=== PATIENT | male | born 1955 | race Caucasian/White ===

== ENCOUNTER 2016-07-15 11:41 | Emergency (ER) | payer MEDICARE, OTHER ==
[~2016-07-15] VITALS: Ht 170.2 cm; Wt 128.0 kg
[~2016-07-15 11:41] MED LIST: ASPI-664 PO; ATOR40TA68 PO; CLON0.2T5 PO; FURO-109 PO; INSU500I SQ; LANT3I SC; METO-448 PO; OMEG1CAP2 PO; OMEP40CA6 PO; VALS80TA2 PO
[2016-07-15 11:54] VITALS: Ht 170.2 cm; Wt 128.0 kg
== END 2016-07-15 12:31 | disposition left against medical advice (07) ==
LOC: E/R 11:41
DX: Z53.21 Procedure and treatment not carried out due to patient leaving prior to being seen by health care provider (principal)

== ENCOUNTER → 2016-10-19 | Outpatient (CLI) | payer MEDICARE, OTHER ==
--- NOTE | 2016-10-19 14:06 | RADRPT ---
PROCEDURE: XR Chest. CLINICAL INDICATION: Shortness of breath. TECHNIQUE: Two views. Frontal and lateral. COMPARISON: 12/29/2015. FINDINGS: The lungs are clear. The heart is mildly enlarged. There is no pleural effusion. There is no pneumothorax. IMPRESSION: 1. Mild cardiomegaly. 2. Otherwise normal chest x-ray. RPTAT: QQ .Kyler Tomlinson MD, MD Date Time Electronically viewed and signed by .Kyler Tomlinson MD, MD on 10/19/2016 14:06 .R/
== END | disposition home or self-care (01) ==
LOC: RAD 13:05
PROVIDERS: ATTEND General Practice
DX: R06.00 Dyspnea, unspecified (principal)
CPT/HCPCS: 71020

== ENCOUNTER 2016-11-07 10:36 | Inpatient (IN) | payer MEDICARE, OTHER ==
[~2016-11-07] VITALS: Ht 170.2 cm; Wt 166.7 kg
--- NOTE | 2016-11-07 12:03 | ERA ---
ER Documentation Chief Complaint Date/Time DATE: 11/07/16 TIME: 12:03 Chief Complaint SOB HPI The patient is a 61-year-old male, presenting to the ER because of shortness of breath for the last several week, worse today. He had similar symptoms previously, complains of dizziness and intermittent cough for the last 2 days. He denies fever, chills, syncope, near syncope, neck pain, chest pain, palpitation, diaphoresis, abdominal pain, vomiting, dysuria, diarrhea. He does not smoke nor drink Past medical history: Hypertension, obesity, osteoarthritis, diabetes mellitus, dyslipidemia, diabetic neuropathy Past surgical history: Right forefoot amputation ROS All systems reviewed and are negative except as per history of present illness. Medications Home Meds Active Scripts Metoprolol Tartrate* (Lopressor*) 25 Mg Tab, 50 MG PO BID for 1 Day, TAB Prov:ALEXX CHRISTINE MD 12/13/15 Valsartan* (Diovan*) 80 Mg Tablet, 80 MG PO DAILY for 1 Day, TAB Prov:ALEXX CHRISTINE MD 12/13/15 Reported Medications Hydrocodone/Acetaminophen ([place] 10-325 Tablet) 1 Each Tablet, 1 TAB PO q6h Y for PAIN LEVEL 6-10, TAB 11/07/16 Potassium Chloride* (K-Dur*) 10 Meq Tab.prt.sr, 10 MEQ PO DAILY, TAB 11/07/16 Insulin Regular, Human (Humulin R U-500 Kwikpen) 500 Unit/1 Ml Insuln.pen, 12 UNIT SQ AC BREAKFAST 12/29/15 Omeprazole* (Omeprazole*) 40 Mg Capsule.dr, 40 MG PO DAILY, #30 CAP 12/11/15 Clonidine Hcl* (Clonidine Hcl*) 0.2 Mg Tablet, 0.2 MG PO QID Y for ANXIETY, TAB 12/11/15 Atorvastatin* (Atorvastatin*) 40 Mg Tablet, 40 MG PO QHS, #30 TAB 12/11/15 [place]-3 Acid Ethyl Esters (Lovaza) 1 Gm Capsule, 4 GM PO DAILY, CAP 12/11/15 Insulin Glargine* (Lantus*) 100 Unit/Ml Soln, 62 UNIT SC HS, EA 03/19/15 Furosemide* (Lasix*) 40 Mg Tablet, 40 MG PO DAILY, TAB 03/19/15 Aspirin* (Aspirin* (EC)) 81 Mg Tablet.dr, 81 MG PO daily 08/06/12 Allergies Allergies: Coded Allergies: Penicillins (Verified Allergy, Unknown, RASH, RAPID HEART RATE, 11/07/16) PMhx/Soc History of Surgery: Yes (right TMA) Anesthesia Reaction: No Hx Neurological Disorder: No Hx Respiratory Disorders: No Hx Cardiac Disorders: Yes (HTN) Hx Miscellaneous Medical Probl: No (DM, elevated Cholesterol.) Hx Alcohol Use: No Hx Substance Use: No Hx Tobacco Use: No Physical Exam Vitals Vital Signs Date Time Temp Pulse Resp B/P Pulse Ox O2 Delivery O2 Flow Rate FiO2 11/07/16 18:50 98.0 74 16 179/87 98 Room Air 11/07/16 17:00 98.0 73 16 182/95 98 Room Air 11/07/16 15:00 98.1 69 16 187/94 97 Room Air 11/07/16 13:00 67 18 180/95 96 Room Air 11/07/16 12:15 97.9 72 18 171/81 97 Room Air 11/07/16 10:46 98.1 70 22 192/93 97 Physical Exam Const: No acute distress. Head: Atraumatic. Eyes: Normal Conjunctiva. ENT: Normal External Ears, Nose and Mouth. Neck: Full range of motion. No meningismus. Resp: Bibasilar crackle Cardio: Regular rate and rhythm. Abd: Soft, non distended, normal bowel sounds, non tender. Skin: No petechiae or rashes. Back: No midline or flank tenderness. Ext: Chronic erythema of lower extremity with mild bilateral calf tenderness, no open lesion Neur: Awake and alert. No focal deficit Psych: Normal Mood and Affect. Result Diagram: 11/07/16 1215 11/07/16 1215 Results 24 hrs Laboratory Tests Test 11/07/16 12:07 11/07/16 12:11 11/07/16 12:15 Blood Gas Specimen Source Blood arterial Arterial Blood Date Drawn 11/07/2016 12:30:46 PM Arterial Blood pH (Temp corrected) 7.438 Arterial Blood pCO2 (Temp correct) 37.0mmhg Arterial Blood pO2 (Temp corrected) 78.2mmHG Arterial Blood HCO3 24.5mmol/L Arterial Blood Base Excess 0.6mmol/L Arterial Blood Oxygen Saturation 95.9mmHG Nate Test ACCEPTAB Arterial Blood Gas Puncture Site Left Radial Arterial Blood Carboxyhemoglobin 0.1% Arterial Blood Methemoglobin 0.2% Blood Gas A-a O2 Differential 27.2mmHg Oxyhemoglobin Percent 95.6% Total Hemoglobin 13.8g/dl Blood Gas Temperature 37.0C Blood Gas Modality ROOM AIR FiO2 21.0% Blood Gas Notified Whom Jerod Blood Gas Notified Time 11/07/2016 12:38:42 PM Bedside Glucose 156mg/dL White Blood Count 6.610^3/ul Red Blood Count 4.4410^6/ul Hemoglobin 12.6g/dl Hematocrit 39.3% Mean Corpuscular Volume 88.5fl Mean Corpuscular Hemoglobin 28.4pg Mean Corpuscular Hemoglobin Concent 32.1g/dl Red Cell Distribution Width 13.6% Platelet Count 12346^3/UL Mean Platelet Volume 10.0fl Neutrophils % 58.1% Lymphocytes % 28.5% Monocytes % 8.7% Eosinophils % 3.8% Basophils % 0.6% Nucleated Red Blood Cells % 0.0/100WBC Neutrophils # 3.810^3/ul Lymphocytes # 1.910^3/ul Monocytes # 0.610^3/ul Eosinophils # 0.310^3/ul Basophils # 0.010^3/ul Nucleated Red Blood Cells # 0.010^3/ul Prothrombin Time 12.3Sec Prothrombin Time Ratio 1.0 INR International Normalized Ratio 0.91 Activated Partial Thromboplast Time 25.2Sec D-Dimer 840.98ng/ml D-Dimer Comment Sodium Level 140mmol/L Potassium Level 4.2mmol/L Chloride Level 103mmol/L Carbon Dioxide Level 26mmol/L Anion Gap 15 Blood Urea Nitrogen 21mg/dl Creatinine 1.74mg/dl Glucose Level 168mg/dl Calcium Level 8.9mg/dl Total Bilirubin 1.5mg/dl Direct Bilirubin 0.00mg/dl Indirect Bilirubin 1.5mg/dl Aspartate Amino Transf (AST/SGOT) 32IU/L Alanine Aminotransferase (ALT/SGPT) 39IU/L Alkaline Phosphatase 153IU/L Troponin I 0.019ng/ml B-Type Natriuretic Peptide 868PG/ML Total Protein 6.8g/dl Albumin 3.4g/dl Globulin 3.40g/dl Albumin/Globulin Ratio 1.00 Current Medications Medications (Trade) Dose Ordered Sig/Aicha Route PRN Reason Start Time Stop Time Status Last Admin Dose Admin Acetaminophen/ Hydrocodone Bitart ([place] (10/325)) 1 tab ONCE ONCE PO 11/07/16 13:30 11/07/16 13:31 DC 11/07/16 13:18 Furosemide (Lasix) 40 mg ONCE ONCE IV 11/07/16 15:00 11/07/16 15:01 DC 11/07/16 15:07 IV Flush (NS 3 ml) 3 ml PER PROTOCOL IV 11/07/16 17:30 Ondansetron HCl (Zofran Inj) 4 mg Q6H PRN IV NAUSEA AND/OR VOMITING 11/07/16 17:30 Acetaminophen (Tylenol Tab) 650 mg Q6H PRN PO PAIN LEVEL 1-3 OR FEVER 11/07/16 17:30 Acetaminophen/ Hydrocodone Bitart ([place] (5/325)) 1 tab Q6H PRN PO MODERATE PAIN LEVEL 4-6 11/07/16 17:30 Morphine Sulfate (morphine) 2 mg Q4H PRN IV SEVERE PAIN LEVEL 7-10 11/07/16 17:30 Docusate Sodium (Colace) 100 mg Q12H PRN PO CONSTIPATION 11/07/16 17:30 Zolpidem Tartrate (Ambien) 5 mg QHS PRN PO SLEEP 11/07/16 17:30 Miscellaneous Information (* Miscellaneous Pharmacy Order) Discontinue current oral sulfonylur... ONCE ONCE XX 11/07/16 17:30 11/07/16 17:30 DC Diagnostic Test (Pha) (Accu-Chek) 1 ea 02 XX 11/08/16 02:00 Miscellaneous Information (* Miscellaneous Pharmacy Order) HYPOGLYCEMIA PROTOCOL w... ONCE ONCE XX 11/07/16 17:30 11/07/16 17:30 DC Insulin Aspart (Novolog Insulin Pen) NOVOLOG *MILD* ALGORITHM WITH MEALS BEDTIME SC 11/07/16 18:00 Miscellaneous Information (* Miscellaneous Pharmacy Order) Discontinue all previ... ONCE ONCE XX 11/07/16 17:30 11/07/16 17:30 DC Heparin Sodium (Porcine) (Heparin (5000 Units/0.5 ml)) 5,000 unit BID SC 11/07/16 21:00 Aspirin (Halfprin) 81 mg DAILY PO 11/08/16 09:00 Atorvastatin Calcium (Lipitor) 40 mg QHS PO 11/07/16 21:00 Clonidine (Catapres) 0.2 mg QID PRN PO ANXIETY 11/07/16 17:30 UNV Insulin Glargine (Lantus) 62 unit HS SC 11/07/16 21:00 Metoprolol Tartrate (Lopressor) 50 mg BID PO 11/07/16 21:00 Potassium Chloride (Klor-Con 10) 10 meq DAILY PO 11/08/16 09:00 Valsartan (Diovan) 80 mg DAILY PO 11/08/16 09:00 Insulin Aspart (Novolog Insulin Pen) 12 unit AC BREAKFAST SC 11/08/16 07:00 Fish Oil (Fish Oil) 4,000 mg DAILY PO 11/08/16 09:00 Pantoprazole (Protonix Tab) 40 mg DAILY@06 PO 11/08/16 06:00 Furosemide (Lasix) 40 mg BID DIURETICS IV 11/07/16 18:00 11/07/16 18:49 Miscellaneous Information 1 ea NOTE XX 11/07/16 17:30 Glucose (Glutose) 15 gm Q15M PRN PO DECREASED GLUCOSE 11/07/16 17:30 Glucose (Glutose) 22.5 gm Q15M PRN PO DECREASED GLUCOSE 11/07/16 17:30 Dextrose (D50w Syringe) 25 ml Q15M PRN IV DECREASED GLUCOSE 11/07/16 17:30 Dextrose (D50w Syringe) 50 ml Q15M PRN IV DECREASED GLUCOSE 11/07/16 17:30 Glucagon (Glucagen) 1 mg Q15M PRN IM DECREASED GLUCOSE 11/07/16 17:30 Glucose (Glutose) 15 gm Q15M PRN BUCCAL DECREASED GLUCOSE 11/07/16 17:30 Procedures/[place] [id number] Radiology Main Line: [phone] DIAGNOSTIC IMAGING REPORT Patient: MARIANO JAVIER : 1955 Age: 61 Sex: M MR #: [id number] DOS: 11/07/16 1207 Ordering MD: JANIYA JONES MD Location: E/R Room/Bed: PROCEDURE: US bilateral lower extremity veins. CLINICAL INDICATION: Bilateral leg pain and swelling. Shortness of breath. TECHNIQUE: Multiple longitudinal and transverse images of the bilateral lower extremity veins were obtained with velazquez scale and color Doppler imaging. The common femoral vein, femoral vein, and popliteal vein were evaluated. 2D grayscale measurements with compression sonography, color Doppler, and pulsed Doppler with augmentation. COMPARISON: No prior studies are available for comparison. FINDINGS: The bilateral common femoral, femoral and popliteal veins are normally compressible throughout. Color flow demonstrates normal filling of the vessels. Normal waveforms are visualized and there is normal response to augmentation. IMPRESSION: 1. No evidence of deep vein thrombosis involving either lower extremity. RPTAT: QQ .Kyler Tomlinson MD, MD Date Time Electronically viewed and signed by .Kyler Tomlinson MD, MD on 11/07/2016 13:26 .R/ CC: JANIYA JONES MD EKG: Read by emergency physician Rate/Rhythm: Accelerated junctional rhythm 72 beats/min QRS, ST, T-waves: No ST elevation, no T inversion, LAD, inferior and anterior Q waves Impression: Abnormal EKG [place] [id number] Radiology Main Line: [phone] DIAGNOSTIC IMAGING REPORT Patient: MARIANO JAVIER : 1955 Age: 61 Sex: M MR #: [id number] DOS: 11/07/16 1207 Ordering MD: AJNIYA JONES MD Location: E/R Room/Bed: PROCEDURE: XR Chest. CLINICAL INDICATION: shortness of breath TECHNIQUE: Single portable view of the chest was obtained COMPARISON: 10/19/2016 FINDINGS: There is mild cardiomegaly. There is mild pulmonary vascular congestion. There is no pleural effusion. There is no pneumothorax. The bones and soft tissues are unremarkable. RPTAT: AA IMPRESSION: Mild cardiomegaly with mild pulmonary vascular congestion. .Alex Pena MD, MD Date Time Electronically viewed and signed by .Alex Pena MD, MD on 11/07/2016 14: 22 .S/ CC: JANIYA JONES MD VQ scan is pending to rule out pulmonary embolism MEDICAL MAKING DECISION: The patient is a 71-year-old male, presenting with acute CHF, possibly chronic kidney disease. He was treated with [place] 10 mg p.o. for pain, Lasix 40 mg IV for acute CHF with good response The differential diagnoses considered include but are not limited to asthma, COPD, pneumonia, pulmonary embolus, pleural effusion, congestive heart failure. Departure Diagnosis: Primary Impression: CHF (congestive heart failure) Additional Impressions: Chronic kidney disease Anemia Abnormal LFTs Condition: Stable Comments I discussed the person with his physician Dr.Michel Mehta, who recommended me to admit the patient to the hospital I discussed the findings with the patient. I discussed the patient with the on- call hospitalist Dr. Siegel at 3:20 PM who was made aware of the lab, the treatment, the patient condition. The patient is admitted to JANIYA Goodwin MD Nov 07, 2016 12:03
[2016-11-07 12:33] LABS: BASOPHILS % 0.6 % (0.0-2.0); EOSINOPHILS # 0.3 10^3/ul (0.0-0.5); EOSINOPHILS % 3.8 % (0.0-7.0); HEMATOCRIT 39.3 % (42.0-52.0); HEMOGLOBIN 12.6 g/dl (14.0-18.0); LYMPHOCYTES # 1.9 10^3/ul (0.8-2.9); LYMPHOCYTES % 28.5 % (15.0-51.0); MEAN CORPUSCULAR HEMOGLOBIN 28.4 pg (29.0-33.0); MEAN CORPUSCULAR HGB CONC 32.1 g/dl (32.0-37.0); MEAN CORPUSCULAR VOLUME 88.5 fl (82.0-101.0); MONOCYTE # 0.6 10^3/ul (0.3-0.9); MONOCYTES % 8.7 % (0.0-11.0); NEUTROPHIL # 3.8 10^3/ul (1.6-7.5); NEUTROPHILS % 58.1 % (39.0-77.0); PLATELET COUNT 233 10^3/UL (140-415); RED BLOOD COUNT 4.44 10^6/ul (4.70-6.10); RED CELL DISTRIBUTION WIDTH 13.6 % (11.5-14.5); WHITE BLOOD COUNT 6.6 10^3/ul (4.8-10.8)
[2016-11-07 12:38] LABS: AADO2 Arterial 27.2 mmHg (7.0-24.0); Allen Test ACCEPTAB; Arterial Base Excess 0.6 mmol/L (-3.0-3); Arterial COHb 0.1 % (0.0-3.0); Arterial Fraction of Oxyhgb 95.6 % (93.0-99.0); Arterial HCO3 24.5 mmol/L (22.0-26.0); Arterial MetHb 0.2 % (0.0-1.5); Arterial Total Hemglobin 13.8 g/dl (12.0-18.0); MODE ROOM AIR
[2016-11-07 12:53] LABS: INR 0.91; PROTIME 12.3 Sec (12.2-14.2)
[2016-11-07 12:54] LABS: PARTIAL THROMBOPLASTIN TIME 25.2 Sec (25.0-35.0)
[2016-11-07 12:56] LABS: D-DIMER 840.98 ng/ml (<460)
[2016-11-07 13:08] LABS: ALBUMIN 3.4 g/dl (3.3-4.9); BILIRUBIN,INDIRECT 1.5 mg/dl (0-1.1); BILIRUBIN,TOTAL 1.5 mg/dl (0.2-1.3); CALCIUM 8.9 mg/dl (8.4-10.2); CREATININE 1.74 mg/dl (0.61-1.24); POTASSIUM 4.2 mmol/L (3.5-5.1); TOTAL PROTEIN 6.8 g/dl (6.1-8.1)
[2016-11-07 13:19] LABS: TROPONIN-I 0.019 ng/ml (0.00-0.12)
--- NOTE | 2016-11-07 13:26 | RADRPT ---
PROCEDURE: US bilateral lower extremity veins. CLINICAL INDICATION: Bilateral leg pain and swelling. Shortness of breath. TECHNIQUE: Multiple longitudinal and transverse images of the bilateral lower extremity veins were obtained with velazquez scale and color Doppler imaging. The common femoral vein, femoral vein, and popl iteal vein were evaluated. 2D grayscale measurements with compression sonography, color Doppler, and pulsed Doppler with augmentation. COMPARISON: No prior studies are available for comparison. FINDINGS: The bilateral common femoral, femoral and popliteal veins are normally compressible throughout. Col or flow demonstrates normal filling of the vessels. Normal waveforms are visualized and there is no rmal response to augmentation. IMPRESSION: 1. No evidence of deep vein thrombosis involving either lower extremity. RPTAT: QQ .Kyler Tomlinson MD, MD Date Time Electronically viewed and signed by .Kyler Tomlinson MD, on 11/07/2016 13:26 .R/
[2016-11-07] MEDS ORDERED: HYDROCODONE/APAP (10/325) TAB PO ONE (13:30)
--- NOTE | 2016-11-07 14:22 | RADRPT ---
PROCEDURE: XR Chest. CLINICAL INDICATION: shortness of breath TECHNIQUE: Single portable view of the chest was obtained COMPARISON: 10/19/2016 FINDINGS: There is mild cardiomegaly. There is mild pulmonary vascular congestion. There is no pleural effusion. There is no pneumothorax. The bones and soft tissues are unremarkable. RPTAT: AA IMPRESSION: Mild cardiomegaly with mild pulmonary vascular congestion. .Alex Pena MD, MD Date Time Electronically viewed and signed by .Alex Pena MD, on 11/07/2016 14:22 .S/
[2016-11-07] MEDS ORDERED: HYDR-902 PO (14:23)
[2016-11-07] MEDS ORDERED: POTA10TA37 PO (14:23)
[2016-11-07] MEDS ORDERED: FUROSEMIDE 40 MG INJ IV ONE (15:00)
--- NOTE | 2016-11-07 17:02 | HP ---
Date/Time of Note Date/Time of Note DATE: 11/07/16 TIME: 16:56 Assessment/Plan VTE Prophylaxis VTE Prophylaxis Intervention: LMWH Assessment/Plan Chief Complaint/Hosp Course 1. Acute respiratory distress secondary to pulmonary edema Lasix IV, 2D echo 2. Diabetes Continue home regimen, sliding scale 3. Hypertension Resume home medications 4. Dyslipidemia Resume 5. Morbid obesity Lifestyle changes to be advised Prophylaxis: Lovenox Problems: HPI/ROS Admit Date/Time Admit Date/Time November 07, 2016 Hx of Present Illness Patient is a 61-year-old male with a history of morbid obesity, diabetes, hypertension, dyslipidemia, right foot ulceration status post TMA. Patient presents with shortness of breath and lower extremity pain the past several days. In the ED chest x-ray showed mild pulmonary vascular congestion, patient has no other complaints at this time. Of note patient is following up with [facility] for his podiatric issues. ROS Constitutional: improved, no complaints Eyes: no complaints ENT: no complaints Respiratory: shortness of breath Cardiovascular: no complaints Gastrointestinal: no complaints Genitourinary: no complaints Musculoskeletal: other (Pain in the legs) Skin: no complaints Endocrine: no complaints Lymphatic: no complaints Psychological: nl mood/affect, no complaints Immunologic: no complaints PMH/Family/Social Past Medical History As per HPI Family History Significant Family History: diabetes, hypertension Social History Alcohol Use: none Smoking Status: Former smoker Drug Use: none Exam/Review of Systems Vital Signs Vitals Vital Signs Date Time Temp Pulse Resp B/P Pulse Ox O2 Delivery O2 Flow Rate FiO2 11/07/16 13:00 67 18 180/95 96 Room Air 11/07/16 12:15 97.9 Exam Constitutional: alert, oriented Head: normocephalic Respiratory: clear to auscultation Cardiovascular: regular rate and rhythm Gastrointestinal: soft, No distended Musculoskeletal: No nl extremities to inspection Labs Result Diagram: 11/07/16 1215 11/07/16 1215 ROGELIO AVILES Nov 07, 2016 17:01
[2016-11-07] MEDS ORDERED: GLUCAGON 1 MG INJ IM PRN (17:30)
[2016-11-07] MEDS ORDERED: DOCUSATE SODIUM 100 MG CAP PO PRN (17:30)
[2016-11-07] MEDS ORDERED: GLUCOSE GEL 15 GRAM TUBE PO PRN ×2 (17:30)
[2016-11-07] MEDS ORDERED: ACETAMINOPHEN 325 MG TAB PO PRN (17:30)
[2016-11-07] MEDS ORDERED: DEXTROSE 50% 50 ML SYRINGE IV PRN ×2 (17:30)
[2016-11-07] MEDS ORDERED: morphine 2 MG INJ IV PRN (17:30)
[2016-11-07] MEDS ORDERED: GLUCOSE GEL 15 GRAM TUBE BUCCAL PRN (17:30)
[2016-11-07] MEDS ORDERED: ZOLPIDEM 5 MG TAB PO PRN (17:30)
[2016-11-07] MEDS ORDERED: NACL 0.9% 3 ML SYG IV SCH (17:30)
[2016-11-07] MEDS ORDERED: ONDANSETRON 4 MG INJ IV PRN (17:30)
[2016-11-07] MEDS: INSULIN ASPART [NOVOLOG] 3 ML PEN SC SCH ×2 (18:00→20:42)
[2016-11-07] MEDS: FUROSEMIDE 40 MG INJ IV SCH (18:49)
[2016-11-07 18:50] VITALS: TEMP 98
[2016-11-07 19:32] VITALS: PULSE 75
[2016-11-07 20:00] VITALS: Ht 170.2 cm; Wt 166.7 kg
[2016-11-07 20:03] VITALS: PULSE 70
[2016-11-07 20:08] VITALS: BP 193/89; RESP 20
[2016-11-07] MEDS: METOPROLOL 50 MG TAB PO SCH (20:20)
[2016-11-07] MEDS: HEPARIN 5,000 UNIT/0.5 ML VIAL SC SCH (20:28)
[2016-11-07] MEDS: morphine 4 MG/ML VIAL IV PRN (20:38)
[2016-11-07] MEDS ORDERED: INSULIN GLARGINE [LANtus] 3 ML PEN SC SCH (21:00)
[2016-11-07] MEDS ORDERED: ATORVASTATIN 40 MG TAB PO SCH (21:00)
[2016-11-07 22:30] VITALS: BP 160/75; PULSE 72; RESP 20
[2016-11-07] MEDS: hydrALAzine 20 MG INJ IV PRN (23:12)
[2016-11-07] MEDS: HYDROCODONE/APAP (5/325) TAB PO PRN (23:12)
[2016-11-08] VITALS (12 sets, daily range): BP systolic 132–183; BP diastolic 67–80; PULSE 69–72; RESP 20
[2016-11-08] MEDS ORDERED: ACCU-CHEK XX SCH (02:00)
[2016-11-08] MEDS ORDERED: PANTOPRAZOLE (EC) 40 MG TAB PO SCH (06:00)
[2016-11-08] MEDS: HYDROCODONE/APAP (5/325) TAB PO PRN ×2 (06:47→13:37)
[2016-11-08] MEDS: FUROSEMIDE 40 MG INJ IV SCH ×2 (06:48→18:10)
[2016-11-08 06:55] LABS: BASOPHILS % 0.5 % (0.0-2.0); EOSINOPHILS # 0.3 10^3/ul (0.0-0.5); EOSINOPHILS % 4.1 % (0.0-7.0); HEMATOCRIT 40.4 % (42.0-52.0); HEMOGLOBIN 12.8 g/dl (14.0-18.0); LYMPHOCYTES # 2.7 10^3/ul (0.8-2.9); LYMPHOCYTES % 34.6 % (15.0-51.0); MEAN CORPUSCULAR HEMOGLOBIN 28.6 pg (29.0-33.0); MEAN CORPUSCULAR HGB CONC 31.7 g/dl (32.0-37.0); MEAN CORPUSCULAR VOLUME 90.4 fl (82.0-101.0); MEAN PLATELET VOLUME 10.4 fl (7.4-10.4); MONOCYTE # 0.8 10^3/ul (0.3-0.9); MONOCYTES % 10.3 % (0.0-11.0); NEUTROPHIL # 3.9 10^3/ul (1.6-7.5); NEUTROPHILS % 50.2 % (39.0-77.0); PLATELET COUNT 254 10^3/UL (140-415); RED BLOOD COUNT 4.47 10^6/ul (4.70-6.10); RED CELL DISTRIBUTION WIDTH 13.8 % (11.5-14.5); WHITE BLOOD COUNT 7.8 10^3/ul (4.8-10.8)
[2016-11-08] MEDS ORDERED: INSULIN ASPART [NOVOLOG] 3 ML PEN SC SCH (07:00)
[2016-11-08 07:35] LABS: CALCIUM 9.2 mg/dl (8.4-10.2); CHOL/HDL RATIO 3.8 RATIO; CREATININE 1.93 mg/dl (0.61-1.24); MAGNESIUM 1.8 mg/dl (1.7-2.5); PHOSPHORUS 4.2 mg/dl (2.5-4.9); POTASSIUM 4.8 mmol/L (3.5-5.1)
[2016-11-08] MEDS: METOPROLOL 50 MG TAB PO SCH (08:14)
[2016-11-08] MEDS: HEPARIN 5,000 UNIT/0.5 ML VIAL SC SCH (08:16)
[2016-11-08] MEDS: INSULIN ASPART [NOVOLOG] 3 ML PEN SC SCH ×3 (08:26→17:20)
[2016-11-08] MEDS ORDERED: VALSARTAN 80 MG TAB PO SCH (09:00)
[2016-11-08] MEDS ORDERED: ASPIRIN (EC) 81 MG TAB PO SCH (09:00)
[2016-11-08] MEDS ORDERED: POTASSIUM CHLORIDE (SR) 10 MEQ TAB PO SCH (09:00)
[2016-11-08] MEDS ORDERED: AMLODIPINE 10 MG TAB PO SCH (09:00)
[2016-11-08] MEDS ORDERED: FISH OIL 1,000 MG CAP PO SCH (09:00)
[2016-11-08] MEDS ORDERED: PREG50CA PO (09:46)
[2016-11-08] MEDS ORDERED: PREGABALIN 50 MG CAP PO SCH (12:00)
[2016-11-08] MEDS: morphine 4 MG/ML VIAL IV PRN (12:11)
[2016-11-08] MEDS: hydrALAzine 20 MG INJ IV PRN (12:12)
--- NOTE | 2016-11-08 12:55 | RADRPT ---
Echocardiogram Report Patient Name: MARIANO JAVIER Gender: Male Date: 1955 Study Date: 08-Nov-2016 Stacker Operator: Esteban Ibarra [facility] Location: [id number] Ref. Physician: ROGELIO AVILES Quality: Technically Difficult Study Procedures: Transthoracic echocardiogram with complete 2D, M-Mode, and doppler examination. Indications: Congestive Heart Failure. 2D/M Mode Doppler Measurement Value Normal Ranges Measurement Value Normal Ranges LVIDd 2D 4.7 3.5 - 5.6 cm AV Peak Otto 0.9 m/sec LVIDs 2D 2.7 2.1 - 4.1 cm AV Peak PG 3.3 mmHg LVPWd 2D 1.8 0.6 - 1.1 cm LVOT Peak Otto 0.9 m/sec IVSd 2D 1.9 0.6 - 1.1 cm LVOT Peak PG 3.1 mmHg AoR Diam 2D 3.8 2.0 - 3.7 cm EDV 2D 104.1 cm3 ESV 2D 20.2 cm3 LA Dimen 2D 4.6 2.3 - 4.0 cm Findings Left Ventricle: Normal left ventricular systolic function. Normal left ventricular cavity size. Severe concentric left ventricular hypertrophy. Ejection fraction is visually estimated at 65 %. Abnormal Diastolic Function. Right Ventricle: Normal right ventricular size. Normal right ventricular systolic function. Left Atrium: There is mild enlargement of left atrium. Right Atrium: The right atrium is normal in size. Mitral Valve: Normal appearance and function of the mitral valve with trace physiologic regurgitation. Aortic Valve: No significant aortic stenosis or insufficiency. Aortic cusps appear mildly calcified. Tricuspid Valve: Normal appearance of the tricuspid valve. Unable to obtain RVSP due to minimal presence of tricuspid regurgitation. Pulmonic Valve: Normal pulmonic valve appearance. Pericardium: Trivial pericardial effusion. Aorta: Normal aortic root. IVC: Dilated IVC with respiratory collapse consistent with elevated right atrial pressure. Conclusions 1.Normal left ventricular systolic function. Normal left ventricular cavity size. Severe concentric left ventricular hypertrophy. Ejection fraction is visually estimated at 65 %. Abnormal Diastolic Function. 2.There is mild enlargement of left atrium. 3.Normal appearance and function of the mitral valve with trace physiologic regurgitation. 4.No significant aortic stenosis or insufficiency. Aortic cusps appear mildly calcified. 5.Normal appearance of the tricuspid valve. Unable to obtain RVSP due to minimal presence of tricuspid regurgitation. 6.Dilated IVC with respiratory collapse consistent with elevated right atrial pressure. Electronically Signed By: Jorge Luis Weir 08-Nov-2016 12:54:08 -0700 Patient Name: MARIANO JAVIER Study Date: 08-Nov-[id number]
--- NOTE | 2016-11-08 16:25 | PDOCDIS ---
Discharge Instructions CONDITION Patient Condition: Good HOME CARE INSTRUCTIONS: Special Diet: Diabetic ACTIVITY: Activity Restrictions: No Restrictions FOLLOW UP/APPOINTMENTS Follow-up Plan FOLLOW UP WITH YOUR PRIMARY CARE PHYSICIAN IN 1-2 WEEKS ROGELIO AVILES Nov 08, 2016 16:25
--- NOTE | 2016-11-08 16:37 | DS ---
Date/Time of Note Date/Time of Note DATE: 11/08/16 TIME: 16:27 Discharge Summary Admission/Discharge Info Admit Date/Time Nov 07, 2016 at 15:21 Discharge Date/Time November 08, 2016 Discharge Diagnosis 1. Acute respiratory distress secondary to pulmonary edema status post Lasix IV -resolved 2D echo shows a normal EF, continue home Lasix 2. Diabetes Continue home regimen 3. Hypertension Resume home medications 4. Dyslipidemia Resume home 5. Morbid obesity Lifestyle changes advised Patient Condition: Good Hospital Course Patient is a 61-year-old male with a history of morbid obesity, diabetes, hypertension, dyslipidemia, right foot ulceration status post TMA. Patient presents with shortness of breath and lower extremity pain the past several days. In the ED chest x-ray showed mild pulmonary vascular congestion, patient status post Lasix IV with resolution of both shortness of breath and lower extremity pain. Patient is morbidly obese and lifestyle changes were advised. Patient's 2D echo showed severe LVH but a normal EF, A1c was 9.9 which is an improvement from prior levels but patient was advised that he needs to continue to improve his lifestyle and be more compliant with a diabetic diet. On the day of discharge patient was felt to be stable, vitals labs physical exam are stable and patient had no further complaints. Patient's questions were answered. Home Meds Active Scripts Metoprolol Tartrate* (Lopressor*) 25 Mg Tab, 50 MG PO BID for 1 Day, TAB Prov:ALEXX CHRISTINE MD 12/13/15 Valsartan* (Diovan*) 80 Mg Tablet, 80 MG PO DAILY for 1 Day, TAB Prov:ALEXX CHRISTINE MD 12/13/15 Reported Medications Pregabalin* (Lyrica*) 50 Mg Capsule, 50 MG PO TID, CAP 11/08/16 Hydrocodone/Acetaminophen ([place] 10-325 Tablet) 1 Each Tablet, 1 TAB PO q6h Y for PAIN LEVEL 6-10, TAB 11/07/16 Potassium Chloride* (K-Dur*) 10 Meq Tab.prt.sr, 10 MEQ PO DAILY, TAB 11/07/16 Insulin Regular, Human (Humulin R U-500 Kwikpen) 500 Unit/1 Ml Insuln.pen, 12 UNIT SQ AC BREAKFAST 12/29/15 Omeprazole* (Omeprazole*) 40 Mg Capsule.dr, 40 MG PO DAILY, #30 CAP 12/11/15 Clonidine Hcl* (Clonidine Hcl*) 0.2 Mg Tablet, 0.2 MG PO QID Y for ANXIETY, TAB 12/11/15 Atorvastatin* (Atorvastatin*) 40 Mg Tablet, 40 MG PO QHS, #30 TAB 12/11/15 [place]-3 Acid Ethyl Esters (Lovaza) 1 Gm Capsule, 4 GM PO DAILY, CAP 12/11/15 Insulin Glargine* (Lantus*) 100 Unit/Ml Soln, 62 UNIT SC HS, EA 03/19/15 Furosemide* (Lasix*) 40 Mg Tablet, 40 MG PO DAILY, TAB 03/19/15 Aspirin* (Aspirin* (EC)) 81 Mg Tablet.dr, 81 MG PO daily 08/06/12 Follow-up Plan Follow up with PCP 1-2 week Primary Care Provider Alexis Ellis MD Time spent on discharge: > 30 minutes ROGELIO AVILES Nov 08, 2016 16:37
== END 2016-11-08 19:05 | disposition home or self-care (01) | DRG 189 ==
LOC: E/R 10:36 → TEL 15:21
PROVIDERS: ADMIT Hospitalist; ATTEND Hospitalist
DX: J81.1 Chronic pulmonary edema (principal); E11.40 Type 2 diabetes mellitus with diabetic neuropathy, unspecified; Z68.43 Body mass index [BMI] 50.0-59.9, adult; I10 Essential (primary) hypertension; E78.5 Hyperlipidemia, unspecified; E66.01 Morbid (severe) obesity due to excess calories; Z89.431 Acquired absence of right foot; Z87.891 Personal history of nicotine dependence
CPT/HCPCS: 36415; 36600; 71010; 80048; 80053; 80061; 82803; 82962; 83036; 83735; 83880; 84100; 84484; 85025; 85378; 85610; 85730; 93005; 93306; 93970; 96374; 96376; J0360; J1644; J1815; J1940; J2270; J2405

== ENCOUNTER → 2017-02-24 | Outpatient (CLI) | payer MEDICARE, OTHER ==
[~2017-02-24] MED LIST changes: +HYDR-902 PO; +POTA10TA37 PO; +PREG50CA PO
--- NOTE | 2017-02-24 14:36 | RADRPT ---
PROCEDURE: XR Chest. CLINICAL INDICATION: shortness of breath TECHNIQUE: PA and lateral views of the chest were obtained COMPARISON: 10/19/2016 FINDINGS: The heart and mediastinum are within normal limits. There is mild pulmonary vascular congestion. There are mild bilateral perihilar interstitial infiltr ates. There is no pleural effusion or pneumothorax. There are mild degenerative changes of the thoracic spine. IMPRESSION: Mild pulmonary vascular congestion with mild bilateral perihilar interstitial infiltrates. RPTAT:AA .Alex Pena MD, MD Date Time Electronically viewed and signed by .Alex Pena MD, MD on 02/24/2017 14:36 .S/
== END | disposition home or self-care (01) ==
LOC: LAB 13:57
PROVIDERS: ATTEND Internal Medicine Interventional Cardiology
DX: R06.02 Shortness of breath (principal); R60.0 Localized edema
CPT/HCPCS: 71020

== ENCOUNTER 2017-02-26 13:06 | Inpatient (IN) | payer MEDICARE, OTHER ==
[~2017-02-26] VITALS: Ht 170.2 cm; Wt 157.7 kg
[2017-02-26] MEDS ORDERED: SOD CHLORIDE 0.9% 500 ML IV STA (13:41)
[2017-02-26] MEDS ORDERED: METF500T4 PO (13:49)
[2017-02-26] MEDS ORDERED: VALS320T11 PO (13:49)
[2017-02-26] MEDS ORDERED: SERT50TA PO (13:50)
[2017-02-26] MEDS ORDERED: LORA0.5T PO (13:50)
[2017-02-26] MEDS ORDERED: RANI300T3 PO (13:50)
[2017-02-26 13:59] LABS: BASOPHILS % 0.5 % (0.0-2.0); EOSINOPHILS # 0.2 10^3/ul (0.0-0.5); HEMOGLOBIN 13.1 g/dl (14.0-18.0); LYMPHOCYTES % 32.1 % (15.0-51.0); MEAN CORPUSCULAR HEMOGLOBIN 28.7 pg (29.0-33.0); MEAN CORPUSCULAR HGB CONC 32.8 g/dl (32.0-37.0); MEAN CORPUSCULAR VOLUME 87.7 fl (82.0-101.0); MEAN PLATELET VOLUME 10.2 fl (7.4-10.4); MONOCYTE # 0.5 10^3/ul (0.3-0.9); MONOCYTES % 7.7 % (0.0-11.0); NEUTROPHIL # 3.5 10^3/ul (1.6-7.5); NEUTROPHILS % 56.4 % (39.0-77.0); PLATELET COUNT 235 10^3/UL (140-415); RED BLOOD COUNT 4.56 10^6/ul (4.70-6.10); RED CELL DISTRIBUTION WIDTH 13.5 % (11.5-14.5); WHITE BLOOD COUNT 6.2 10^3/ul (4.8-10.8)
[2017-02-26] MEDS ORDERED: LORAZEPAM 0.5 MG TAB PO ONE (14:00)
--- NOTE | 2017-02-26 14:04 | RADRPT ---
PROCEDURE: XR Chest. CLINICAL INDICATION: Abdominal pain TECHNIQUE: Single frontal view of the chest was obtained COMPARISON: 02/24/2017 FINDINGS: No pleural effusion or pneumothorax. No consolidation. Stable enlarged cardiomediastinal silhouette. Mild interstitial pulmonary edema. No acute osseous abnormality. IMPRESSION: Cardiomegaly with mild interstitial pulmonary edema. Superimposed infection to be determined clinica lly. RPTAT: EE Physician Claudia Date Time Electronically viewed and signed by Luis Dickson Physician on 02/26/2017 14:03 /
[2017-02-26 14:18] LABS: ALBUMIN 3.2 g/dl (3.3-4.9); ALBUMIN/GLOBULIN RATIO 0.82; BILIRUBIN,INDIRECT 1.3 mg/dl (0-1.1); BILIRUBIN,TOTAL 1.3 mg/dl (0.2-1.3); CALCIUM 9.7 mg/dl (8.4-10.2); CREATININE 1.97 mg/dl (0.61-1.24); POTASSIUM 4.4 mmol/L (3.5-5.1); TOTAL PROTEIN 7.1 g/dl (6.1-8.1)
--- NOTE | 2017-02-26 14:19 | RADRPT ---
PROCEDURE: Ultrasound of the bilateral lower extremity venous system. CLINICAL INDICATION: Bilateral leg pain and swelling. TECHNIQUE: Maldonado scale with and without compression, color doppler, spectral doppler of the venous system of the bilateral lower extremities was performed. Venous augmentation maneuvers were utilized . COMPARISON: 11/07/2016 FINDINGS: RIGHT: Common femoral vein:Patent and compressible. Femoral vein:Patent and compressible. Popliteal vein:Patent and compressible. Visualized calf veins:Patent and compressible. Soft tissues:Normal LEFT: Common femoral vein:Patent and compressible. Femoral vein:Patent and compressible. Popliteal vein:Patent and compressible. Visualized calf veins:Patent and compressible. Soft tissues:Normal IMPRESSION: 1. No evidence of deep vein thrombosis. RPTAT: PP .Janusz Urias MD, Date Time Electronically viewed and signed by .Janusz Urias MD, on 02/26/2017 14:18 .B/
[2017-02-26 14:29] LABS: TROPONIN-I 0.031 ng/ml (0.00-0.12)
[2017-02-26] MEDS ORDERED: ENALAPRILAT 1.25 MG INJ IV ONE (15:00)
[2017-02-26] MEDS ORDERED: FUROSEMIDE 40 MG INJ IV ONE (15:00)
[2017-02-26] MEDS ORDERED: ASPIRIN 81 MG TAB PO ONE (15:00)
[2017-02-26] MEDS ORDERED: NITROGLYCERIN (SL) 0.4 MG TAB SL ONE (15:00)
[2017-02-26] MEDS ORDERED: NACL 0.9% 3 ML SYG IV SCH (16:30)
[2017-02-26] MEDS ORDERED: LORAZEPAM 0.5 MG TAB PO PRN (16:30)
[2017-02-26] MEDS ORDERED: GLUCOSE GEL 15 GRAM TUBE BUCCAL PRN (17:30)
[2017-02-26] MEDS ORDERED: GLUCOSE GEL 15 GRAM TUBE PO PRN ×2 (17:30)
[2017-02-26] MEDS ORDERED: DEXTROSE 50% 50 ML SYRINGE IV PRN ×2 (17:30)
[2017-02-26] MEDS ORDERED: GLUCAGON 1 MG INJ IM PRN (17:30)
--- NOTE | 2017-02-26 17:31 | ERD ---
ER Documentation Chief Complaint Chief Complaint cough and generalized weakness x 1 week HPI 61-year-old man here for evaluation of shortness of breath 2-3 days, is also had orthopnea, dyspnea on exertion, and recent lower extremity edema. He states he has been using his medications as prescribed, denies chest pain, no fevers or chills, no cough, no vomiting or diarrhea. ROS All systems reviewed and are negative except as per history of present illness. Medications Home Meds Active Scripts Metoprolol Tartrate* (Lopressor*) 25 Mg Tab, 50 MG PO BID for 1 Day, TAB Prov:ALEXX CHRISTINE MD 12/13/15 Valsartan* (Diovan*) 80 Mg Tablet, 80 MG PO DAILY for 1 Day, TAB Prov:ALEXX CHRISTINE MD 12/13/15 Reported Medications Lorazepam* (Lorazepam*) 0.5 Mg Tablet, 0.5 MG PO HS Y for SLEEP, TAB 02/26/17 Ranitidine Hcl* (Zantac*) 300 Mg Tablet, 300 MG PO HS, #30 TAB 02/26/17 Sertraline Hcl* (Zoloft*) 50 Mg Tablet, 50 MG PO DAILY, #30 TAB 02/26/17 Valsartan* (Diovan*) 320 Mg Tablet, 320 MG PO DAILY, TAB 02/26/17 Metformin Hcl* (Metformin Hcl*) 500 Mg Tablet, 500 MG PO WITH BREAKFAST DINNE, # 30 TAB 02/26/17 Pregabalin* (Lyrica*) 50 Mg Capsule, 50 MG PO TID, CAP 11/08/16 Hydrocodone/Acetaminophen ([place] 10-325 Tablet) 1 Each Tablet, 1 TAB PO q6h Y for PAIN LEVEL 6-10, TAB 11/07/16 Potassium Chloride* (K-Dur*) 10 Meq Tab.prt.sr, 10 MEQ PO DAILY, TAB 11/07/16 Insulin Regular, Human (Humulin R U-500 Kwikpen) 500 Unit/1 Ml Insuln.pen, 12 UNIT SQ AC BREAKFAST 12/29/15 Omeprazole* (Omeprazole*) 40 Mg Capsule.dr, 40 MG PO DAILY, #30 CAP 12/11/15 Clonidine Hcl* (Clonidine Hcl*) 0.2 Mg Tablet, 0.2 MG PO QID Y for ANXIETY, TAB 12/11/15 Atorvastatin* (Atorvastatin*) 40 Mg Tablet, 40 MG PO QHS, #30 TAB 12/11/15 [place]-3 Acid Ethyl Esters (Lovaza) 1 Gm Capsule, 4 GM PO DAILY, CAP 12/11/15 Insulin Glargine* (Lantus*) 100 Unit/Ml Soln, 62 UNIT SC HS, EA 03/19/15 Furosemide* (Lasix*) 40 Mg Tablet, 40 MG PO DAILY, TAB 03/19/15 Aspirin* (Aspirin* (EC)) 81 Mg Tablet.dr, 81 MG PO daily 08/06/12 Allergies Allergies: Coded Allergies: Penicillins (Verified Allergy, Unknown, RASH, RAPID HEART RATE, 02/26/17) PMhx/Soc CHF, diabetes mellitus, hypertension, dyslipidemia, super morbid obesity History of Surgery: Yes (RIGHT TOES/METATARSAL AMPUTATION) Anesthesia Reaction: No Hx Neurological Disorder: No Hx Respiratory Disorders: No Hx Cardiac Disorders: Yes (HTN,CHF) Hx Psychiatric Problems: No Hx Miscellaneous Medical Probl: Yes (ANXIETY) Hx Alcohol Use: Yes (LAST USE 40 YRS AGO) Hx Substance Use: Yes (COCCAINE-LAST USE 40 YRS AGO) Hx Tobacco Use: Yes (CIGARETTE LAST USE-40 YRS AGO) Smoking Status: Former smoker FmHx Family History: No diabetes Physical Exam Vitals Vital Signs Date Time Temp Pulse Resp B/P Pulse Ox O2 Delivery O2 Flow Rate FiO2 02/26/17 17:50 75 20 153/86 97 Room Air 02/26/17 17:00 72 20 156/83 98 Room Air 02/26/17 16:00 63 20 147/84 95 Room Air 02/26/17 15:00 62 20 175/99 96 Room Air 02/26/17 14:41 191/94 02/26/17 13:30 65 20 189/90 100 Room Air 02/26/17 13:14 97.8 73 22 180/96 100 Physical Exam GENERAL: Well-developed, well-nourished, dyspneic, afebrile, anxious HEENT: Moist mucous membranes, pink conjunctiva, no cervical spine tenderness or step-off deformities, no goiter, no jaundice or icterus, extraocular movements intact without pain. No submandibular induration, and no pharyngeal erythema NEURO: Alert and oriented 3, cranial nerves II through XII intact bilaterally, pupils equal round reactive to light, no focal deficits or facial asymmetry, sensation intact distally Strength 5/5 in upper and lower extremities bilaterally CARDIAC: Regular rate and rhythm, no murmurs rubs or gallops LUNGS: Poor breath sounds bilaterally, crackles at the bases ABDOMEN: Soft nontender, no guarding, no rigidity, no rebound, no psoas sign no obturator sign. Normoactive bowel sounds SKIN: Warm and dry to touch, no abrasions, contusions, or hematomas, no lacerations, no ecchymosis, no target lesions, and without ulcers EXTREMITIES: No clubbing cyanosis, 1+ pitting edema in the lower extremities bilaterally, calves are bilaterally symmetrical, no Homans sign, no popliteal cord sign. Distal pulses equal and bilateral PSYCH: Anxious appearing Result Diagram: 02/26/17 1350 02/26/17 1350 Results 24 hrs Laboratory Tests Test 02/26/17 13:50 White Blood Count 6.210^3/ul Red Blood Count 4.5610^6/ul Hemoglobin 13.1g/dl Hematocrit 40.0% Mean Corpuscular Volume 87.7fl Mean Corpuscular Hemoglobin 28.7pg Mean Corpuscular Hemoglobin Concent 32.8g/dl Red Cell Distribution Width 13.5% Platelet Count 87421^3/UL Mean Platelet Volume 10.2fl Neutrophils % 56.4% Lymphocytes % 32.1% Monocytes % 7.7% Eosinophils % 3.0% Basophils % 0.5% Nucleated Red Blood Cells % 0.0/100WBC Neutrophils # 3.510^3/ul Lymphocytes # 2.010^3/ul Monocytes # 0.510^3/ul Eosinophils # 0.210^3/ul Basophils # 0.010^3/ul Nucleated Red Blood Cells # 0.010^3/ul Sodium Level 139mmol/L Potassium Level 4.4mmol/L Chloride Level 103mmol/L Carbon Dioxide Level 29mmol/L Anion Gap 11 Blood Urea Nitrogen 28mg/dl Creatinine 1.97mg/dl Glucose Level 225mg/dl Calcium Level 9.7mg/dl Total Bilirubin 1.3mg/dl Direct Bilirubin 0.00mg/dl Indirect Bilirubin 1.3mg/dl Aspartate Amino Transf (AST/SGOT) 21IU/L Alanine Aminotransferase (ALT/SGPT) 32IU/L Alkaline Phosphatase 174IU/L Troponin I 0.031ng/ml B-Type Natriuretic Peptide 2590PG/ML Total Protein 7.1g/dl Albumin 3.2g/dl Globulin 3.90g/dl Albumin/Globulin Ratio 0.82 Lipase 70U/L Current Medications Medications (Trade) Dose Ordered Sig/Aicha Route PRN Reason Start Time Stop Time Status Last Admin Dose Admin Sodium Chloride (NS) 500 ml @ 500 mls/hr Q1H STAT IV 02/26/17 13:41 02/26/17 14:40 DC 02/26/17 14:27 Lorazepam (Ativan) 0.5 mg ONCE ONCE PO 02/26/17 14:00 02/26/17 14:01 DC 02/26/17 14:29 Furosemide (Lasix) 60 mg ONCE ONCE IV 02/26/17 15:00 02/26/17 15:01 DC 02/26/17 14:51 Aspirin (Aspirin) 162 mg ONCE ONCE PO 02/26/17 15:00 02/26/17 15:01 DC 02/26/17 14:51 Nitroglycerin (Nitroglycerin (Sl Tab) 0.4 Mg) 1 tab ONCE ONCE SL 02/26/17 15:00 02/26/17 15:01 DC 02/26/17 14:51 Enalaprilat (Vasotec Iv) 1.25 mg ONCE ONCE IV 02/26/17 15:00 02/26/17 15:01 DC 02/26/17 14:49 IV Flush (NS 3 ml) 3 ml PER PROTOCOL IV 02/26/17 16:30 Acetaminophen/ Hydrocodone Bitart ([place] (5/325)) 1 tab Q6H PRN PO MODERATE PAIN LEVEL 4-6 02/26/17 16:30 Enoxaparin Sodium (Lovenox) 40 mg DAILY SC 02/27/17 09:00 Aspirin (Halfprin) 81 mg daily PO 02/27/17 09:00 Atorvastatin Calcium (Lipitor) 40 mg QHS PO 02/26/17 21:00 Clonidine (Catapres) 0.2 mg QID PRN PO ANXIETY 02/26/17 16:30 UNV Insulin Glargine (Lantus) 62 unit HS SC 02/26/17 21:00 02/26/17 21:00 DC Lorazepam (Ativan) 0.5 mg HS PRN PO SLEEP 11/19/17 16:30 Metoprolol Tartrate (Lopressor) 50 mg BID PO 02/26/17 21:00 02/26/17 21:00 DC Ranitidine HCl (Zantac) 300 mg HS PO 02/26/17 21:00 Sertraline HCl (Zoloft) 50 mg DAILY PO 02/27/17 09:00 Valsartan (Diovan) 80 mg DAILY PO 02/27/17 09:00 Furosemide (Lasix) 60 mg BID DIURETICS IV 02/26/17 18:00 Clonidine (Catapres) 0.2 mg QID PRN PO .ANXIETY 02/26/17 17:30 Miscellaneous Information 1 ea NOTE XX 02/26/17 17:30 Glucose (Glutose) 15 gm Q15M PRN PO DECREASED GLUCOSE 02/26/17 17:30 Glucose (Glutose) 22.5 gm Q15M PRN PO DECREASED GLUCOSE 02/26/17 17:30 Dextrose (D50w Syringe) 25 ml Q15M PRN IV DECREASED GLUCOSE 02/26/17 17:30 Dextrose (D50w Syringe) 50 ml Q15M PRN IV DECREASED GLUCOSE 02/26/17 17:30 Glucagon (Glucagen) 1 mg Q15M PRN IM DECREASED GLUCOSE 02/26/17 17:30 Glucose (Glutose) 15 gm Q15M PRN BUCCAL DECREASED GLUCOSE 02/26/17 17:30 Insulin Glargine (Lantus) 40 unit HS SC 02/26/17 21:00 Miscellaneous Information (* Miscellaneous Pharmacy Order) Discontinue current oral sulfonylur... ONCE ONCE XX 02/26/17 18:00 02/26/17 18:02 DC Diagnostic Test (Pha) (Accu-Chek) 1 ea 02 XX 02/27/17 02:00 Insulin Aspart (Novolog Insulin Pen) 11 unit WITH MEALS SC 02/26/17 18:00 Miscellaneous Information (* Miscellaneous Pharmacy Order) HYPOGLYCEMIA PROTOCOL w... ONCE ONCE XX 02/26/17 18:00 02/26/17 18:02 DC Insulin Aspart (Novolog Insulin Pen) NOVOLOG *MODERATE* ALGORITHM WITH MEALS BEDTIME SC 02/26/17 18:00 Miscellaneous Information (* Miscellaneous Pharmacy Order) Discontinue all previ... ONCE ONCE XX 02/26/17 18:00 02/26/17 18:03 DC Procedures/MDM IV line was established patient was placed on school lunch monitor rhythm strip revealed a sinus rhythm at about 70 bpm with upright P and T waves. Patient was afebrile EKG performed, read by me: Accelerated junctional rhythm at, left axis deviation , no concerning ST elevations or depressions noted, with a right ventricular conduction delay QRS duration of 108 ms One view chest x-ray performed, read by me revealed bilateral interstitial edema and cardiomegaly, no acute infiltrates, no pneumothorax. CHF. I administered furosemide 60 mg IV 1, aspirin 162 mg p.o. for cardioprotective measures, enalapril 1.25 mg IV, nitroglycerin 0.4 mg sublingual 1. Patient received lorazepam 0.5 mg p.o. for anxiety. CBC and electrolytes were normal, liver function tests were normal, troponin was negative. BNP elevated at about 3000. EKG #2 performed about 3 hours later reveals accelerated junctional rhythm at 71 bpm, left axis deviation, right ventricular conduction delay with a QRS duration of [address] elevations or depressions noted. There is upright P-wave in lead II making junctional rhythm questionable, may be third- degree AV block. Critical Care: Time: 45 minutes, this was time separate from other billable procedures. Treatments/Evaluations: Close monitoring and treatment of unstable vital signs, cardiorespiratory, and neurologic status, while maintaining tight balance of fluid, respiratory, and cardiac interventions. Patient will be admitted to the intensive care unit due to his dysrhythmia until cardiology evaluation. Departure Diagnosis: Primary Impression: Cardiac dysrhythmia Arrhythmia type: unspecified cardiac arrhythmia Qualified Code: I49.9 - Cardiac arrhythmia, unspecified cardiac arrhythmia type Additional Impressions: CHF (congestive heart failure) Congestive heart failure type: systolic Congestive heart failure chronicity: acute Qualified Code: I50.21 - Acute systolic congestive heart failure Hypertension Hypertension type: essential hypertension Qualified Code: I10 - Essential hypertension Acute kidney injury Condition: CHARLIE Khan MD Feb 26, 2017 17:04
--- NOTE | 2017-02-26 17:40 | HP ---
Date/Time of Note Date/Time of Note DATE: 02/26/17 TIME: 17:23 Assessment/Plan VTE Prophylaxis VTE Prophylaxis Intervention: heparin Assessment/Plan Chief Complaint/Hosp Course 61 yo male with h/o CKD III, DMII, diastolic CHF, hypertension PAD who presents with acute on chronic diastolic CHF exacerbation, EKG notable for complete heart block w junctional escape vs Mobitz type 1 Arrhythmia: - To me looks concerning for complete heart block with juncitonal escape. I spoke to Dr Weir who reviewed EKGs remotely and thinks more likely Mobitz 1. - Regardless he is hemodynamically stable and asymptomatic without any bradycardia or syncopal symptoms so will monitor for now. - Hold all casie blockers, had been on metoprolol at home - Further management per Dr Weir Acute diastolic CHF exacerbation: - Continue diuresis with IV lasix, respiratory status is stable CKD III: - Stable, monitor creatinine DMII: - Continue home insulin regimen with sliding scale Discharge when stable Problems: HPI/ROS Admit Date/Time Admit Date/Time Hx of Present Illness 61 yo male with h/o morbid obesity, diastolic CHF, CKD III, DMII, PAD who presents with SOB and dry cough over past few days The patient describes slow onset of a mild cough. Has progressed to orthopnea and SOB particularly with ambulation. He has no chest discomfort or angina. He has no lightheadedness or palpitations. No peripheral edema In ED, found to have congestion on XR and given IV lasix Feels well currently PMH/Family/Social Past Medical History Medical History: congestive heart failure, renal disease Social History Alcohol Use: none Smoking Status: Former smoker Drug Use: none Exam/Review of Systems Vital Signs Vitals Vital Signs Date Time Temp Pulse Resp B/P Pulse Ox O2 Delivery O2 Flow Rate FiO2 02/26/17 14:41 191/94 02/26/17 13:14 97.8 73 22 100 Exam Exam Morbidly obese, resting comfortably in NAD, AOx3 Mild JVD present Distant heart sounds, irregular, no obvious mr/g Lungs clear Abdomen morbidly obese, soft nt Ext with venous stasis changes b/l, s/p resection of toes on R foot Labs Result Diagram: 02/26/17 1350 02/26/17 1350 Medications Medications Current Medications Acetaminophen/ Hydrocodone Bitart ([place] (5/325)) 1 tab Q6H PRN PO MODERATE PAIN LEVEL 4-6; Start 02/26/17 at 16:30 Enoxaparin Sodium (Lovenox) 40 mg DAILY SC ; Start 02/27/17 at 09:00 Aspirin (Halfprin) 81 mg daily PO ; Start 02/27/17 at 09:00 Atorvastatin Calcium (Lipitor) 40 mg QHS PO ; Start 02/26/17 at 21:00 Insulin Glargine (Lantus) 62 unit HS SC ; Start 02/26/17 at 21:00 Lorazepam (Ativan) 0.5 mg HS PRN PO SLEEP; Start 02/26/17 at 16:30 Metoprolol Tartrate (Lopressor) 50 mg BID PO ; Start 02/26/17 at 21:00 Ranitidine HCl (Zantac) 300 mg HS PO ; Start 02/26/17 at 21:00 Sertraline HCl (Zoloft) 50 mg DAILY PO ; Start 02/27/17 at 09:00 Valsartan (Diovan) 80 mg DAILY PO ; Start 02/27/17 at 09:00 Clonidine (Catapres) 0.2 mg QID PRN PO .ANXIETY; Start 02/26/17 at 17:30 Miscellaneous Information 1 ea NOTE XX ; Start 02/26/17 at 17:30 Glucose (Glutose) 15 gm Q15M PRN PO DECREASED GLUCOSE; Start 02/26/17 at 17:30 Glucose (Glutose) 22.5 gm Q15M PRN PO DECREASED GLUCOSE; Start 02/26/17 at 17: 30 Dextrose (D50w Syringe) 25 ml Q15M PRN IV DECREASED GLUCOSE; Start 02/26/17 at 17:30 Dextrose (D50w Syringe) 50 ml Q15M PRN IV DECREASED GLUCOSE; Start 02/26/17 at 17:30 Glucagon (Glucagen) 1 mg Q15M PRN IM DECREASED GLUCOSE; Start 02/26/17 at 17: 30 Glucose (Glutose) 15 gm Q15M PRN BUCCAL DECREASED GLUCOSE; Start 02/26/17 at 17:30 Procedures Procedures EKG with apparent complete heart block and junctional rhythm vs Mobitz 1 at 70s BPM KADE NERI MD Feb 26, 2017 17:38
[2017-02-26] MEDS ORDERED: Discontinue current oral sulfonylureas (glyburide, glipizide, and/or glimepiride) prior to XX ONE (18:00)
[2017-02-26] MEDS ORDERED: HYPOGLYCEMIA PROTOCOL when Glucose is <70 mg/dL or symptomatic <90 mg/dL. XX ONE (18:00)
[2017-02-26] MEDS: FUROSEMIDE 100 MG INJ IV SCH (18:34)
[2017-02-26 20:40] VITALS: Ht 170.2 cm; Wt 157.7 kg
--- NOTE | 2017-02-26 20:54 | CONS ---
Date/Time of Note Date/Time of Note DATE: 02/26/17 TIME: 20:45 Assessment/Plan Assessment/Plan Chief Complaint/Hosp Course 1. Heart block but not AV dissociation/ complete heart block so far based on ECG in presence of betablocker use Recommend monitoring on telemetry. Okay to transfer out of ICU to telemetry from cardiac standpoint. Will hold off on beta-gee and monitor for now and adjusted accordingly. Pacemaker will be considered only if patient becomes symptomatic with the bradycardia/heart block and after being off of the beta-gee. 2. Congestive heart failure exacerbation acute on chronic secondary diastolic dysfunction 3. Hypertension 4. Morbid obesity: Consider pulmonary evaluation to rule obstructive sleep apnea 5. Diabetes on insulin Recommendations: We will monitor on telemetry off of beta blockers. Thyroid function test will be checked. Lites will be checked in the mid and adjusted. Patient has been started IV Lasix I will continue with that. Monitor renal function. Consider renal consultation as well. Insulin for diabetic control as per internal medicine. Thyroid function tests and lipid panel will be checked in the morning. Thank you for his referral will continue to follow along with you. MORRO HUNTER MD [facility] Problems: Consultation Date/Type/Reason Admit Date/Time Date of Consultation: Feb 26, 2017 Type of Consultation: cardiology Reason for Consultation heart block Referring Provider: KADE NERI MD Hx of Present Illness CC: SOB HPI: Thank you for his referral. History was obtained from the patient on discussion with Dr. Resendiz review of the old chart. This is a 62-year-old gentleman with history of morbid obesity congestive heart failure secondary diastolic dysfunction who presented to emergency room with complaint of at least one day of shortness of breath. Patient said that this morning he was really short of breath he was also coughing. He denies any chest pain or pressure to me denies any syncope presyncope to me. EKG was done in emergency room and were concerned about the heart block the patient has been admitted to ICU for close monitoring. I was currently asked to evaluate the pt due to his EKG abnormality and heart blocks. Patient is going on metoprolol instead he was started on it about a month ago. Patient denies any chest pain or pressure to me denies any syncope presyncope he does mention that he has had an episode of dizziness about 2 days ago for an episode of palpitation about a few days ago. Also had falls in the past. Allergies reported to penicillins Social history patient quit 40 years ago. Smoker only for years at a time. Family history no reported coronary artery disease. Past medical history: Hypertension Diabetes Morbid obesity Congestive heart failure secondary to diastolic dysfunction CKD Review of system: As above-mentioned only. Past Medical History Medical History: congestive heart failure, renal disease Social History Alcohol Use: none Smoking Status: Former smoker Drug Use: none Exam/Review of Systems Vital Signs Vitals Vital Signs Date Time Temp Pulse Resp B/P Pulse Ox O2 Delivery O2 Flow Rate FiO2 02/26/17 20:00 67 20 163/93 97 Room Air 02/26/17 13:14 97.8 Exam General: morbidly obese man. no acute distress HEENT: NC/AT. pupils are equal. round. NECK: difficult to assess for JVD. no stridor. CV: RRR. systolic murmur; no gallop or rubs. PULM: no wheezing or rhonchi. GI: obese. SOFT, NT, ND, no rebound or guarding Extremity:+ B/L LE edema. no clubbing. neuro: awake and alert, OX3. Psych: calm and pleasant rectal: deferred ECG NSR with Mobitz I AV block poor R wave progression ECHO IN Nov 2016 shows normal ECG \ CXR was reviewed Results Result Diagram: 02/26/17 1350 02/26/17 1350 Results 24 hrs Laboratory Tests Test 02/26/17 13:50 02/26/17 20:42 White Blood Count 6.2 # Red Blood Count 4.56 L Hemoglobin 13.1 L Hematocrit 40.0 L Mean Corpuscular Volume 87.7 Mean Corpuscular Hemoglobin 28.7 L Mean Corpuscular Hemoglobin Concent 32.8 Red Cell Distribution Width 13.5 Platelet Count 235 Mean Platelet Volume 10.2 Neutrophils % 56.4 Lymphocytes % 32.1 Monocytes % 7.7 Eosinophils % 3.0 Basophils % 0.5 Nucleated Red Blood Cells % 0.0 Neutrophils # 3.5 Lymphocytes # 2.0 Monocytes # 0.5 Eosinophils # 0.2 Basophils # 0.0 Nucleated Red Blood Cells # 0.0 Sodium Level 139 Potassium Level 4.4 Chloride Level 103 Carbon Dioxide Level 29 Anion Gap 11 Blood Urea Nitrogen 28 H Creatinine 1.97 H Glucose Level 225 H Calcium Level 9.7 Total Bilirubin 1.3 Direct Bilirubin 0.00 Indirect Bilirubin 1.3 H Aspartate Amino Transf (AST/SGOT) 21 Alanine Aminotransferase (ALT/SGPT) 32 Alkaline Phosphatase 174 H Troponin I 0.031 B-Type Natriuretic Peptide 2590 H Total Protein 7.1 Albumin 3.2 L Globulin 3.90 H Albumin/Globulin Ratio 0.82 Lipase 70 Bedside Glucose 168 Medications Medications Current Medications Acetaminophen/ Hydrocodone Bitart ([place] (5/325)) 1 tab Q6H PRN PO MODERATE PAIN LEVEL 4-6; Start 02/26/17 at 16:30 Enoxaparin Sodium (Lovenox) 40 mg DAILY SC ; Start 02/27/17 at 09:00 Aspirin (Halfprin) 81 mg daily PO ; Start 02/27/17 at 09:00 Atorvastatin Calcium (Lipitor) 40 mg QHS PO ; Start 02/26/17 at 21:00 Lorazepam (Ativan) 0.5 mg HS PRN PO SLEEP; Start 02/26/17 at 16:30 Ranitidine HCl (Zantac) 300 mg HS PO ; Start 02/26/17 at 21:00 Sertraline HCl (Zoloft) 50 mg DAILY PO ; Start 02/27/17 at 09:00 Valsartan (Diovan) 80 mg DAILY PO ; Start 02/27/17 at 09:00 Clonidine (Catapres) 0.2 mg QID PRN PO .ANXIETY; Start 02/26/17 at 17:30 Miscellaneous Information 1 ea NOTE XX ; Start 02/26/17 at 17:30 Glucose (Glutose) 15 gm Q15M PRN PO DECREASED GLUCOSE; Start 02/26/17 at 17:30 Glucose (Glutose) 22.5 gm Q15M PRN PO DECREASED GLUCOSE; Start 02/26/17 at 17: 30 Dextrose (D50w Syringe) 25 ml Q15M PRN IV DECREASED GLUCOSE; Start 02/26/17 at 17:30 Dextrose (D50w Syringe) 50 ml Q15M PRN IV DECREASED GLUCOSE; Start 02/26/17 at 17:30 Glucagon (Glucagen) 1 mg Q15M PRN IM DECREASED GLUCOSE; Start 02/26/17 at 17: 30 Glucose (Glutose) 15 gm Q15M PRN BUCCAL DECREASED GLUCOSE; Start 02/26/17 at 17:30 Insulin Glargine (Lantus) 40 unit HS SC ; Start 02/26/17 at 21:00 Diagnostic Test (Pha) (Accu-Chek) 1 ea 02 XX ; Start 02/27/17 at 02:00 MORRO HUNTER MD Feb 26, 2017 20:54
[2017-02-26 21:00] VITALS: BP 151/96; PULSE 78; RESP 13
[2017-02-26] MEDS ORDERED: INSULIN GLARGINE [LANtus] 3 ML PEN SC SCH (21:00)
[2017-02-26] MEDS ORDERED: METOPROLOL 25 MG TAB PO SCH (21:00)
[2017-02-26] MEDS: RANITIDINE 150 MG TAB PO SCH (21:15)
[2017-02-26] MEDS: ATORVASTATIN 40 MG TAB PO SCH (21:16)
[2017-02-26] MEDS: HYDROCODONE/APAP (5/325) TAB PO PRN (21:17)
[2017-02-26] MEDS: INSULIN GLARGINE [LANtus] 3 ML PEN SC SCH (21:23)
[2017-02-26 22:00] VITALS: BP 153/85; PULSE 64; RESP 15
[2017-02-26 22:40] VITALS: PULSE 70
[2017-02-26 23:00] VITALS: BP 175/69; PULSE 57; RESP 19
[2017-02-26] MEDS ORDERED: HYDROCODONE/APAP (10/325) TAB PO PRN (23:00)
[2017-02-27] VITALS (19 sets, daily range): BP systolic 106–197; BP diastolic 60–113; PULSE 51–102; RESP 14–26
[2017-02-27] MEDS: ACCU-CHEK XX SCH (02:00)
[2017-02-27] MEDS: FUROSEMIDE 100 MG INJ IV SCH (06:27)
[2017-02-27 06:52] LABS: BASOPHIL # 0.1 10^3/ul (0.0-0.1); BASOPHILS % 0.6 % (0.0-2.0); EOSINOPHILS # 0.3 10^3/ul (0.0-0.5); HEMATOCRIT 38.8 % (42.0-52.0); HEMOGLOBIN 12.7 g/dl (14.0-18.0); LYMPHOCYTES # 2.5 10^3/ul (0.8-2.9); LYMPHOCYTES % 30.6 % (15.0-51.0); MEAN CORPUSCULAR HEMOGLOBIN 29.1 pg (29.0-33.0); MEAN CORPUSCULAR HGB CONC 32.7 g/dl (32.0-37.0); MEAN CORPUSCULAR VOLUME 88.8 fl (82.0-101.0); MEAN PLATELET VOLUME 10.4 fl (7.4-10.4); MONOCYTE # 0.7 10^3/ul (0.3-0.9); NEUTROPHIL # 4.5 10^3/ul (1.6-7.5); NEUTROPHILS % 55.6 % (39.0-77.0); PLATELET COUNT 233 10^3/UL (140-415); RED BLOOD COUNT 4.37 10^6/ul (4.70-6.10); RED CELL DISTRIBUTION WIDTH 13.9 % (11.5-14.5); WHITE BLOOD COUNT 8.1 10^3/ul (4.8-10.8)
[2017-02-27 07:13] LABS: INR 0.99; PROTIME 13.1 Sec (12.2-14.2)
[2017-02-27] MEDS: INSULIN ASPART [NOVOLOG] 3 ML PEN SC SCH ×7 (07:35→20:35)
[2017-02-27 08:02] LABS: CK-MB 3.47 ng/ml (0.0-2.4); TROPONIN-I 0.049 ng/ml (0.00-0.12)
[2017-02-27 08:05] LABS: CHOL/HDL RATIO 4.3 RATIO; MAGNESIUM 1.6 mg/dl (1.7-2.5)
[2017-02-27 08:08] LABS: ALBUMIN 2.9 g/dl (3.3-4.9); ALBUMIN/GLOBULIN RATIO 0.8; BILIRUBIN,INDIRECT 1.2 mg/dl (0-1.1); BILIRUBIN,TOTAL 1.2 mg/dl (0.2-1.3); CALCIUM 9.5 mg/dl (8.4-10.2); CREATININE 2.18 mg/dl (0.61-1.24); POTASSIUM 4.1 mmol/L (3.5-5.1); TOTAL PROTEIN 6.5 g/dl (6.1-8.1)
[2017-02-27 08:10] LABS: THYROID STIMULATING HORMONE 3.95 MIU/L (0.465-4.680)
[2017-02-27] MEDS: ASPIRIN (EC) 81 MG TAB PO SCH (08:20)
[2017-02-27] MEDS: SERTRALINE 50 MG TAB PO SCH (08:20)
[2017-02-27] MEDS: ENOXAPARIN 40 MG/0.4 ML SYG SC SCH (08:26)
[2017-02-27] MEDS ORDERED: VALSARTAN 80 MG TAB PO SCH (09:00)
[2017-02-27] MEDS ORDERED: MAGNESIUM SULFATE 3 GM in DEXTROSE 5% 100 ML IVPB ONE (11:00)
--- NOTE | 2017-02-27 12:24 | PN ---
Date/Time of Note Date/Time of Note DATE: 02/27/17 TIME: 12:20 Assessment/Plan VTE Prophylaxis VTE Prophylaxis Intervention: LMWH Lines/Catheters IV Catheter Type (from [facility]): Saline Lock Urinary Cath still in place: No Assessment/Plan Chief Complaint/Hosp Course 1. Acute respiratory failure secondary to acute on chronic diastolic CHF exacerbation-improving Continue diuresis 2. Arrhythmia secondary to Mobitz type I Monitor Cards consultation 3. CKD III: Stable, monitor creatinine 4. DMII: - Continue home insulin regimen with sliding scale 5. Morbid obesity Patient is losing weight Prophylaxis: Lovenox Problems: Subjective 24 Hr Interval Summary Respiratory: shortness of breath Exam/Review of Systems Vital Signs Vitals Vital Signs Date Time Temp Pulse Resp B/P Pulse Ox O2 Delivery O2 Flow Rate FiO2 02/27/17 11:00 79 16 155/87 92 Room Air 02/27/17 07:00 97.6 Intake and Output 02/26/17 02/26/17 02/27/17 14:59 22:59 06:59 Intake Total 250 ml Output Total 1800 ml 700 ml Balance -1800 ml -450 ml Exam Constitutional: alert, oriented Respiratory: clear to auscultation Cardiovascular: regular rate and rhythm Gastrointestinal: soft, No distended Musculoskeletal: nl extremities to inspection Results Result Diagram: 02/27/17 0602/27/17 0621 Results 24 hrs Laboratory Tests Test 02/26/17 13:50 02/26/17 20:42 02/27/17 02:26 02/27/17 02:44 White Blood Count 6.2 # Red Blood Count 4.56 L Hemoglobin 13.1 L Hematocrit 40.0 L Mean Corpuscular Volume 87.7 Mean Corpuscular Hemoglobin 28.7 L Mean Corpuscular Hemoglobin Concent 32.8 Red Cell Distribution Width 13.5 Platelet Count 235 Mean Platelet Volume 10.2 Neutrophils % 56.4 Lymphocytes % 32.1 Monocytes % 7.7 Eosinophils % 3.0 Basophils % 0.5 Nucleated Red Blood Cells % 0.0 Neutrophils # 3.5 Lymphocytes # 2.0 Monocytes # 0.5 Eosinophils # 0.2 Basophils # 0.0 Nucleated Red Blood Cells # 0.0 Sodium Level 139 Potassium Level 4.4 Chloride Level 103 Carbon Dioxide Level 29 Anion Gap 11 Blood Urea Nitrogen 28 H Creatinine 1.97 H Glucose Level 225 H Calcium Level 9.7 Total Bilirubin 1.3 Direct Bilirubin 0.00 Indirect Bilirubin 1.3 H Aspartate Amino Transf (AST/SGOT) 21 Alanine Aminotransferase (ALT/SGPT) 32 Alkaline Phosphatase 174 H Troponin I 0.031 B-Type Natriuretic Peptide 2590 H Total Protein 7.1 Albumin 3.2 L Globulin 3.90 H Albumin/Globulin Ratio 0.82 Lipase 70 Bedside Glucose 168 59 L 58 L Test 02/27/17 03:02 02/27/17 03:19 02/27/17 03:36 02/27/17 03:52 Bedside Glucose 61 L 77 90 104 Test 02/27/17 06:21 02/27/17 06:29 02/27/17 06:38 02/27/17 08:22 White Blood Count 8.1 # Red Blood Count 4.37 L Hemoglobin 12.7 L Hematocrit 38.8 L Mean Corpuscular Volume 88.8 Mean Corpuscular Hemoglobin 29.1 Mean Corpuscular Hemoglobin Concent 32.7 Red Cell Distribution Width 13.9 Platelet Count 233 Mean Platelet Volume 10.4 Neutrophils % 55.6 Lymphocytes % 30.6 Monocytes % 9.0 Eosinophils % 4.0 Basophils % 0.6 Nucleated Red Blood Cells % 0.0 Neutrophils # 4.5 Lymphocytes # 2.5 Monocytes # 0.7 Eosinophils # 0.3 Basophils # 0.1 Nucleated Red Blood Cells # 0.0 Sodium Level 143 Potassium Level 4.1 Chloride Level 105 Carbon Dioxide Level 31 Anion Gap 11 Blood Urea Nitrogen 28 H Creatinine 2.18 H Glucose Level 91 # Calcium Level 9.5 Magnesium Level 1.6 L Total Bilirubin 1.2 Direct Bilirubin 0.00 Indirect Bilirubin 1.2 H Aspartate Amino Transf (AST/SGOT) 27 Alanine Aminotransferase (ALT/SGPT) 31 Alkaline Phosphatase 104 B-Type Natriuretic Peptide 1500 H Total Protein 6.5 Albumin 2.9 L Globulin 3.60 H Albumin/Globulin Ratio 0.80 Triglycerides Level 174 H Cholesterol Level 126 LDL Cholesterol, Calculated 62 HDL Cholesterol 29 L Cholesterol/HDL Ratio 4.3 Thyroid Stimulating Hormone (TSH) 3.950 Free Thyroxine 1.26 Digoxin Level < 0.4 L Creatine Kinase 114 Creatine Kinase Index 3.0 Creatinine Kinase MB (Mass) 3.47 H Troponin I 0.049 Prothrombin Time 13.1 Prothrombin Time Ratio 1.0 INR International Normalized Ratio 0.99 Bedside Glucose 105 Test 02/27/17 08:48 02/27/17 09:43 Bedside Glucose 104 146 Medications Medications Current Medications Acetaminophen/ Hydrocodone Bitart ([place] (5/325)) 1 tab Q6H PRN PO MODERATE PAIN LEVEL 4-6 Last administered on 02/26/17 21:17; Admin Dose 1 TAB; Start 02/26/17 at 16:30 Enoxaparin Sodium (Lovenox) 40 mg DAILY SC Last administered on 02/27/17 08: 26; Admin Dose 40 MG; Start 02/27/17 at 09:00 Aspirin (Halfprin) 81 mg daily PO Last administered on 02/27/17 08:20; Admin Dose 81 MG; Start 02/27/17 at 09:00 Atorvastatin Calcium (Lipitor) 40 mg QHS PO Last administered on 02/26/17 21: 16; Admin Dose 40 MG; Start 02/26/17 at 21:00 Lorazepam (Ativan) 0.5 mg HS PRN PO SLEEP; Start 02/26/17 at 16:30 Ranitidine HCl (Zantac) 300 mg HS PO Last administered on 02/26/17 21:15; Admin Dose 300 MG; Start 02/26/17 at 21:00 Sertraline HCl (Zoloft) 50 mg DAILY PO Last administered on 02/27/17 08:20; Admin Dose 50 MG; Start 02/27/17 at 09:00 Valsartan (Diovan) 80 mg DAILY PO Last administered on 02/27/17 08:20; Admin Dose 80 MG; Start 02/27/17 at 09:00 Clonidine (Catapres) 0.2 mg QID PRN PO .ANXIETY Last administered on 10:07; Admin Dose 0.2 MG; Start 02/26/17 at 17:30 Miscellaneous Information 1 ea NOTE XX Last administered on 02/27/17 03:08; Admin Dose 1 EA; Start 02/26/17 at 17:30 Glucose (Glutose) 15 gm Q15M PRN PO DECREASED GLUCOSE; Start 02/26/17 at 17:30 Glucose (Glutose) 22.5 gm Q15M PRN PO DECREASED GLUCOSE; Start 02/26/17 at 17: 30 Dextrose (D50w Syringe) 25 ml Q15M PRN IV DECREASED GLUCOSE; Start 02/26/17 at 17:30 Dextrose (D50w Syringe) 50 ml Q15M PRN IV DECREASED GLUCOSE; Start 02/26/17 at 17:30 Glucagon (Glucagen) 1 mg Q15M PRN IM DECREASED GLUCOSE; Start 02/26/17 at 17: 30 Glucose (Glutose) 15 gm Q15M PRN BUCCAL DECREASED GLUCOSE Last administered on 02/27/17 03:24; Admin Dose 15 GM; Start 02/26/17 at 17:30 Insulin Glargine (Lantus) 40 unit HS SC Last administered on 02/26/17 21:23; Admin Dose 40 UNIT; Start 02/26/17 at 21:00 Diagnostic Test (Pha) (Accu-Chek) 1 ea 02 XX Last administered on 02/27/17 02 :00; Admin Dose 1 EA; Start 02/27/17 at 02:00 Acetaminophen/ Hydrocodone Bitart 1 tab 1 tab Q4H PRN PO PAIN Last administered on 02/26/17 23:13; Admin Dose 1 TAB; Start 02/26/17 at 23:00 Magnesium Sulfate/ Dextrose (Magnesium Sulfate/D5W) 106 ml @ 35.333 mls/ hr ONCE ONCE IVPB Last administered on 02/27/17 10:50; Admin Dose 35.333 MLS/HR ; Start 02/27/17 at 11:00; Stop 02/27/17 at 13:59 ROGELIO AVILES Feb 27, 2017 12:24
[2017-02-27] MEDS ORDERED: FUROSEMIDE 40 MG INJ IV SCH (18:00)
--- NOTE | 2017-02-27 18:57 | CONS ---
Date/Time of Note Date/Time of Note DATE: 02/27/17 TIME: 18:54 Consult Date/Type/Reason Admit Date/Time Feb 26, 2017 at 15:22 Initial Consult Date 02/26/17 Type of Consultation: cardiology Ordering Provider: KADE NERI MD Subjective CARDIOLOGY FOLLOW UP: S: Discussed with a stable rhythm strip was reviewed. Patient remains sinus rhythm. He remains mostly in Mobitz 1 AV block however has had short episode of 2-1 AV block as well. No reports of syncope presyncope dizziness. Patient is that his breathing has significantly improved. He denies any chest pain or pressure to me. O; General: morbidly obese man. no acute distress HEENT: NC/AT. pupils are equal. round. NECK: difficult to assess for JVD. no stridor. CV: RRR. systolic murmur; no gallop or rubs. PULM: no wheezing or rhonchi. GI: obese. SOFT, NT, ND, no rebound or guarding Extremity:+ B/L LE edema. no clubbing. neuro: awake and alert, OX3. Psych: calm and pleasant rectal: deferred ECG NSR with Mobitz I AV block poor R wave progression ECHO IN Nov 2016 shows normal ECG \ CXR was reviewed Objective Vital Signs Date Time Temp Pulse Resp B/P Pulse Ox O2 Delivery O2 Flow Rate FiO2 02/27/17 16:00 63 02/27/17 15:43 98.0 18 106/60 95 02/27/17 13:00 Room Air Intake and Output 02/26/17 02/26/17 02/27/17 15:00 23:00 07:00 Intake Total 750 ml Output Total 2050 ml 750 ml Balance -2050 ml 0 ml Results/Medications Result Diagram: 02/27/17 0621 02/27/17 0621 Results 24 hrs Laboratory Tests Test 02/26/17 20:42 02/27/17 02:26 02/27/17 02:44 02/27/17 03:02 Bedside Glucose 168 59 L 58 L 61 L Test 02/27/17 03:19 02/27/17 03:36 02/27/17 03:52 02/27/17 06:21 Bedside Glucose 77 90 104 White Blood Count 8.1 # Red Blood Count 4.37 L Hemoglobin 12.7 L Hematocrit 38.8 L Mean Corpuscular Volume 88.8 Mean Corpuscular Hemoglobin 29.1 Mean Corpuscular Hemoglobin Concent 32.7 Red Cell Distribution Width 13.9 Platelet Count 233 Mean Platelet Volume 10.4 Neutrophils % 55.6 Lymphocytes % 30.6 Monocytes % 9.0 Eosinophils % 4.0 Basophils % 0.6 Nucleated Red Blood Cells % 0.0 Neutrophils # 4.5 Lymphocytes # 2.5 Monocytes # 0.7 Eosinophils # 0.3 Basophils # 0.1 Nucleated Red Blood Cells # 0.0 Sodium Level 143 Potassium Level 4.1 Chloride Level 105 Carbon Dioxide Level 31 Anion Gap 11 Blood Urea Nitrogen 28 H Creatinine 2.18 H Glucose Level 91 # Hemoglobin A1c 10.7 H Calcium Level 9.5 Magnesium Level 1.6 L Total Bilirubin 1.2 Direct Bilirubin 0.00 Indirect Bilirubin 1.2 H Aspartate Amino Transf (AST/SGOT) 27 Alanine Aminotransferase (ALT/SGPT) 31 Alkaline Phosphatase 104 B-Type Natriuretic Peptide 1500 H Total Protein 6.5 Albumin 2.9 L Globulin 3.60 H Albumin/Globulin Ratio 0.80 Triglycerides Level 174 H Cholesterol Level 126 LDL Cholesterol, Calculated 62 HDL Cholesterol 29 L Cholesterol/HDL Ratio 4.3 Thyroid Stimulating Hormone (TSH) 3.950 Free Thyroxine 1.26 Digoxin Level < 0.4 L Test 02/27/17 06:29 02/27/17 06:38 02/27/17 08:22 02/27/17 08:48 Creatine Kinase 114 Creatine Kinase Index 3.0 Creatinine Kinase MB (Mass) 3.47 H Troponin I 0.049 Prothrombin Time 13.1 Prothrombin Time Ratio 1.0 INR International Normalized Ratio 0.99 Bedside Glucose 105 104 Test 02/27/17 09:43 02/27/17 12:15 02/27/17 15:12 02/27/17 17:22 Bedside Glucose 146 171 171 128 Medications Current Medications Acetaminophen/ Hydrocodone Bitart ([place] (5/325)) 1 tab Q6H PRN PO MODERATE PAIN LEVEL 4-6 Last administered on 02/26/17 21:17; Admin Dose 1 TAB; Start 02/26/17 at 16:30 Enoxaparin Sodium (Lovenox) 40 mg DAILY SC Last administered on 02/27/17 08: 26; Admin Dose 40 MG; Start 02/27/17 at 09:00 Aspirin (Halfprin) 81 mg daily PO Last administered on 02/27/17 08:20; Admin Dose 81 MG; Start 02/27/17 at 09:00 Atorvastatin Calcium (Lipitor) 40 mg QHS PO Last administered on 02/26/17 21: 16; Admin Dose 40 MG; Start 02/26/17 at 21:00 Lorazepam (Ativan) 0.5 mg HS PRN PO SLEEP; Start 02/26/17 at 16:30 Ranitidine HCl (Zantac) 300 mg HS PO Last administered on 02/26/17 21:15; Admin Dose 300 MG; Start 02/26/17 at 21:00 Sertraline HCl (Zoloft) 50 mg DAILY PO Last administered on 02/27/17 08:20; Admin Dose 50 MG; Start 02/27/17 at 09:00 Valsartan (Diovan) 80 mg DAILY PO Last administered on 02/27/17 08:20; Admin Dose 80 MG; Start 02/27/17 at 09:00 Clonidine (Catapres) 0.2 mg QID PRN PO .ANXIETY Last administered on 10:07; Admin Dose 0.2 MG; Start 02/26/17 at 17:30 Miscellaneous Information 1 ea NOTE XX Last administered on 02/27/17 03:08; Admin Dose 1 EA; Start 02/26/17 at 17:30 Glucose (Glutose) 15 gm Q15M PRN PO DECREASED GLUCOSE; Start 02/26/17 at 17:30 Glucose (Glutose) 22.5 gm Q15M PRN PO DECREASED GLUCOSE; Start 02/26/17 at 17: 30 Dextrose (D50w Syringe) 25 ml Q15M PRN IV DECREASED GLUCOSE; Start 02/26/17 at 17:30 Dextrose (D50w Syringe) 50 ml Q15M PRN IV DECREASED GLUCOSE; Start 02/26/17 at 17:30 Glucagon (Glucagen) 1 mg Q15M PRN IM DECREASED GLUCOSE; Start 02/26/17 at 17: 30 Glucose (Glutose) 15 gm Q15M PRN BUCCAL DECREASED GLUCOSE Last administered on 02/27/17 03:24; Admin Dose 15 GM; Start 02/26/17 at 17:30 Insulin Glargine (Lantus) 40 unit HS SC Last administered on 02/26/17 21:23; Admin Dose 40 UNIT; Start 02/26/17 at 21:00 Diagnostic Test (Pha) (Accu-Chek) 1 ea 02 XX Last administered on 02/27/17 02 :00; Admin Dose 1 EA; Start 02/27/17 at 02:00 Acetaminophen/ Hydrocodone Bitart ([place] (10/325)) 1 tab Q4H PRN PO PAIN Last administered on 02/26/17 23:13; Admin Dose 1 TAB; Start 02/26/17 at 23:00 Assessment/Plan Chief Complaint/Hosp Course 1. Heart block but not complete AV dissociation/ complete heart block Recommend monitoring on telemetry. Will hold off on beta-gee and monitor for now and adjusted accordingly. Pacemaker will be considered only if patient becomes symptomatic with the bradycardia/heart block and after being off of the beta-gee. so far stable 2. Congestive heart failure exacerbation acute on chronic secondary diastolic dysfunction 3. Hypertension 4. Morbid obesity: Consider pulmonary evaluation to rule obstructive sleep apnea 5. Diabetes on insulin Recommendations: We will monitor on telemetry off of beta blockers. Thyroid function test were wnl. electrolytes will be checked i and adjusted as needed. I will dec laxis once a day only. Monitor renal function. Consider renal consultation as well. Insulin for diabetic control as per internal medicine. DC ARB due to renal failure and normal EF Thank you for his referral will continue to follow along with you. MORRO HUNTER MD [facility] Problems: MORRO HUNTER MD Feb 27, 2017 18:57
[2017-02-27] MEDS: INSULIN GLARGINE [LANtus] 3 ML PEN SC SCH (20:55)
[2017-02-27] MEDS: HYDROCODONE/APAP (5/325) TAB PO PRN (20:56)
[2017-02-27] MEDS: ATORVASTATIN 40 MG TAB PO SCH (20:57)
[2017-02-27] MEDS: RANITIDINE 150 MG TAB PO SCH (22:53)
[2017-02-28] VITALS (11 sets, daily range): BP systolic 107–219; BP diastolic 58–103; PULSE 69–101; RESP 17–20
[2017-02-28] MEDS: ACCU-CHEK XX SCH (02:00)
[2017-02-28] MEDS ORDERED: hydrALAzine 20 MG INJ ONE (04:10)
[2017-02-28] MEDS ORDERED: hydrALAzine 20 MG INJ IV ONE (04:30)
[2017-02-28] MEDS ORDERED: ONDANSETRON 4 MG INJ ONE (05:05)
[2017-02-28] MEDS ORDERED: ONDANSETRON 4 MG INJ IV PRN (05:30)
[2017-02-28] MEDS: INSULIN ASPART [NOVOLOG] 3 ML PEN SC SCH ×4 (08:32→12:08)
[2017-02-28] MEDS: ENOXAPARIN 40 MG/0.4 ML SYG SC SCH (08:33)
[2017-02-28] MEDS: SERTRALINE 50 MG TAB PO SCH (08:34)
[2017-02-28] MEDS: ASPIRIN (EC) 81 MG TAB PO SCH (08:34)
[2017-02-28] MEDS ORDERED: FUROSEMIDE 40 MG INJ IV SCH (09:00)
--- NOTE | 2017-02-28 09:25 | RADRPT ---
PROCEDURE: XR Chest AP portable CLINICAL INDICATION: CHF TECHNIQUE: An AP portable radiograph of the chest was submitted. COMPARISON: 02/26/2017 FINDINGS: Support Hardware: None Cardiovascular: The heart remains mildly enlarged although pulmonary vasculature is upper normal. Lung Valenzuela: A suboptimal inspiration compresses lung parenchyma with no discrete infiltrate evident . Pleural Spaces: No pneumothorax or pleural effusion is identified. Osseous Structures: The osseous structures appear intact. Soft Tissues: The soft tissues appear generous. IMPRESSION: 1. Mild cardiomegaly with the pulmonary vasculature upper normal. 2. Suboptimal inspiration mildly compresses lung parenchyma. Physician Shabana Date Time Electronically viewed and signed by Physician Shabana on 02/28/2017 09:24 /
[2017-02-28 09:27] LABS: BASOPHIL # 0.1 10^3/ul (0.0-0.1); BASOPHILS % 0.8 % (0.0-2.0); EOSINOPHILS # 0.2 10^3/ul (0.0-0.5); EOSINOPHILS % 2.3 % (0.0-7.0); HEMATOCRIT 41.8 % (42.0-52.0); HEMOGLOBIN 13.9 g/dl (14.0-18.0); LYMPHOCYTES % 23.8 % (15.0-51.0); MEAN CORPUSCULAR HEMOGLOBIN 29.3 pg (29.0-33.0); MEAN CORPUSCULAR HGB CONC 33.3 g/dl (32.0-37.0); MEAN PLATELET VOLUME 10.4 fl (7.4-10.4); MONOCYTE # 0.7 10^3/ul (0.3-0.9); MONOCYTES % 8.2 % (0.0-11.0); NEUTROPHIL # 5.6 10^3/ul (1.6-7.5); NEUTROPHILS % 64.7 % (39.0-77.0); PLATELET COUNT 252 10^3/UL (140-415); RED BLOOD COUNT 4.75 10^6/ul (4.70-6.10); WHITE BLOOD COUNT 8.6 10^3/ul (4.8-10.8)
[2017-02-28 09:31] LABS: CALCIUM 9.4 mg/dl (8.4-10.2); CREATININE 2.12 mg/dl (0.61-1.24); MAGNESIUM 1.9 mg/dl (1.7-2.5); POTASSIUM 4.4 mmol/L (3.5-5.1)
[2017-02-28 09:48] LABS: ALBUMIN/GLOBULIN RATIO 0.78; BILIRUBIN,INDIRECT 2.1 mg/dl (0-1.1); BILIRUBIN,TOTAL 2.1 mg/dl (0.2-1.3); CALCIUM 9.4 mg/dl (8.4-10.2); CREATININE 2.19 mg/dl (0.61-1.24); POTASSIUM 4.3 mmol/L (3.5-5.1); TOTAL PROTEIN 6.8 g/dl (6.1-8.1)
--- NOTE | 2017-02-28 10:53 | PDOCDIS ---
Discharge Instructions CONDITION Patient Condition: Good HOME CARE INSTRUCTIONS: Diet Instructions: Reduced Calorie ACTIVITY: Activity Restrictions: No Restrictions FOLLOW UP/APPOINTMENTS Follow-up Plan F/U WITH YOUR PCP IN 1-2 WEEKS ROGELIO AVILES Feb 28, 2017 10:53
--- NOTE | 2017-03-01 18:20 | DS ---
Date/Time of Note Date/Time of Note DATE: 03/01/17 TIME: 18:16 Discharge Summary Admission/Discharge Info Admit Date/Time Feb 26, 2017 at 15:22 Discharge Date/Time Feb 28, 2017 at 15:20 Discharge Diagnosis 1. Acute respiratory failure secondary to acute on chronic diastolic CHF exacerbation-resolved Continue home meds 2. Arrhythmia secondary to Mobitz type I-stable Cardiology consultation appreciated 3. CKD III: Stable 4. DMII: - Continue home regimen 5. Morbid obesity Patient is losing weight Patient Condition: Good Hospital Course Patient is a 61 yo male with h/o morbid obesity, diastolic CHF, CKD III, DMII, PAD who presents with SOB and dry cough over past few days. Patient was reporting orthopnea was found to be in diastolic heart failure. Patient was diuresed and was seen by cardiology and shortness of breath did resolve. Patient was felt to be stable for DC, on day of discharge patient vitals labs and physical exam are stable he had no acute complaints questions are answered. Home Meds Active Scripts Metoprolol Tartrate* (Lopressor*) 25 Mg Tab, 50 MG PO BID for 1 Day, TAB Prov:ALEXX CHRISTINE MD 12/13/15 Valsartan* (Diovan*) 80 Mg Tablet, 80 MG PO DAILY for 1 Day, TAB Prov:ALEXX CHRISTINE MD 12/13/15 Reported Medications Lorazepam* (Lorazepam*) 0.5 Mg Tablet, 0.5 MG PO HS Y for SLEEP, TAB 02/26/17 Ranitidine Hcl* (Zantac*) 300 Mg Tablet, 300 MG PO HS, #30 TAB 02/26/17 Sertraline Hcl* (Zoloft*) 50 Mg Tablet, 50 MG PO DAILY, #30 TAB 02/26/17 Valsartan* (Diovan*) 320 Mg Tablet, 320 MG PO DAILY, TAB 02/26/17 Metformin Hcl* (Metformin Hcl*) 500 Mg Tablet, 500 MG PO WITH BREAKFAST DINNE, # 30 TAB 02/26/17 Pregabalin* (Lyrica*) 50 Mg Capsule, 50 MG PO TID, CAP 11/08/16 Hydrocodone/Acetaminophen ([place] 10-325 Tablet) 1 Each Tablet, 1 TAB PO q6h Y for PAIN LEVEL 6-10, TAB 11/07/16 Potassium Chloride* (K-Dur*) 10 Meq Tab.prt.sr, 10 MEQ PO DAILY, TAB 11/07/16 Insulin Regular, Human (Humulin R U-500 Kwikpen) 500 Unit/1 Ml Insuln.pen, 12 UNIT SQ AC BREAKFAST 12/29/15 Omeprazole* (Omeprazole*) 40 Mg Capsule.dr, 40 MG PO DAILY, #30 CAP 12/11/15 Clonidine Hcl* (Clonidine Hcl*) 0.2 Mg Tablet, 0.2 MG PO QID Y for ANXIETY, TAB 12/11/15 Atorvastatin* (Atorvastatin*) 40 Mg Tablet, 40 MG PO QHS, #30 TAB 12/11/15 [place]-3 Acid Ethyl Esters (Lovaza) 1 Gm Capsule, 4 GM PO DAILY, CAP 12/11/15 Insulin Glargine* (Lantus*) 100 Unit/Ml Soln, 62 UNIT SC HS, EA 03/19/15 Furosemide* (Lasix*) 40 Mg Tablet, 40 MG PO DAILY, TAB 03/19/15 Aspirin* (Aspirin* (EC)) 81 Mg Tablet., 81 MG PO daily 08/06/12 Follow-up Plan F/U WITH YOUR PCP IN 1-2 WEEKS Primary Care Provider Alexis Ellis MD Time spent on discharge: > 30 minutes ROGELIO AVILES Mar 01, 2017 18:20
== END 2017-02-28 15:20 | disposition home or self-care (01) | DRG 291 ==
LOC: E/R 13:06 → ICU 15:22 → MS4 02-27 14:04
PROVIDERS: ADMIT Internal Medicine; ATTEND Internal Medicine
DX: I13.0 Hypertensive heart and chronic kidney disease with heart failure and stage 1 through stage 4 chronic kidney disease, or unspecified chronic kidney disease (principal); I50.33 Acute on chronic diastolic (congestive) heart failure; J96.00 Acute respiratory failure, unspecified whether with hypoxia or hypercapnia; Z68.43 Body mass index [BMI] 50.0-59.9, adult; E11.22 Type 2 diabetes mellitus with diabetic chronic kidney disease; E11.51 Type 2 diabetes mellitus with diabetic peripheral angiopathy without gangrene; I44.1 Atrioventricular block, second degree; N18.3 Chronic kidney disease, stage 3 (moderate); E66.01 Morbid (severe) obesity due to excess calories; Z87.891 Personal history of nicotine dependence; Z79.4 Long term (current) use of insulin
CPT/HCPCS: 36415; 71010; 80048; 80053; 80061; 80162; 82550; 82553; 82962; 83036; 83690; 83735; 83880; 84145; 84439; 84443; 84484; 85025; 85610; 87081; 93005; 93970; 96361; 96374; 96375; 96376; J0360; J1650; J1940; J2405; J3475; J7040

== ENCOUNTER 2017-08-22 13:57 | Emergency (ER) | END 2017-08-22 19:14 | disposition home or self-care (01) ==

== ENCOUNTER 2017-09-21 21:13 | Emergency (ER) | END 2017-09-22 02:43 | disposition home or self-care (01) ==

== ENCOUNTER 2017-09-27 12:15 | Emergency (ER) | END 2017-09-27 18:29 | disposition home or self-care (01) ==

== ENCOUNTER 2017-10-12 15:16 | Inpatient (IN) | END 2017-10-18 15:40 | disposition home health service (06) | DRG 291 ==

== ENCOUNTER 2017-10-26 19:06 | Emergency (ER) | END 2017-10-26 23:43 | disposition home or self-care (01) ==

== ENCOUNTER 2017-11-16 14:32 | Inpatient (IN) | END 2017-12-06 19:22 | DRG 291 ==

== ENCOUNTER 2018-02-07 13:37 | Emergency (ER) | END 2018-02-07 16:29 | disposition home or self-care (01) ==

== ENCOUNTER 2018-03-08 05:41 | Day surgery (SDC) | END 2018-03-08 10:52 | disposition home or self-care (01) ==

== ENCOUNTER 2018-03-12 12:04 | Emergency (ER) | END 2018-03-12 15:45 | disposition home or self-care (01) ==

== ENCOUNTER 2018-11-30 18:17 | Emergency (ER) | payer MEDICARE, OTHER ==
[~2018-11-30] VITALS: Ht 170.2 cm; Wt 140.0 kg
[~2018-11-30 18:17] MED LIST changes: +AMLO5TAB4 PO; -ASPI-664 PO; +ASPI81TA52 PO; +BUME2TAB2 PO; +CEPH500C PO; -CLON0.2T5 PO; +COMBIG5 BOTH EYES; +CYCL10TA7 PO; +D-ME473S2 PO; +DOCU-144 PO; +ERYT1OIN6 LEFT EYE; -FURO-109 PO; +GABA100C14 PO; +HYDR-3672 PO; -HYDR-902 PO; +HYDR25SU23 PR; +INSU100V3 IJ; -INSU500I SQ; +ISOS20TA19 PO; +METO-429 PO; -METO-448 PO; -OMEG1CAP2 PO; -POTA10TA37 PO; -PREG50CA PO; +SENN-120 PO; -VALS80TA2 PO
[2018-11-30 18:39] VITALS: BP 183/83; PULSE 67; RESP 16; Ht 170.2 cm; Wt 140.0 kg
== END 2018-11-30 19:19 | disposition home or self-care (01) ==
LOC: E/R 18:17
DX: K59.00 Constipation, unspecified (principal); I11.0 Hypertensive heart disease with heart failure; E11.9 Type 2 diabetes mellitus without complications; I50.9 Heart failure, unspecified; Z79.4 Long term (current) use of insulin; Z79.82 Long term (current) use of aspirin
CPT/HCPCS: 99284